=== PATIENT | male | born 1980 | race Caucasian/White ===

== ENCOUNTER 2021-03-04 12:24 | Inpatient (IN) ==
[2021-03-04] MEDS ORDERED: dexAMETHasone**PF** 10 MG/ML VIAL IV ONE (12:47)
--- NOTE | 2021-03-04 12:51 | Emergency Department Note ---
Impression & Plan Pneumonia due to COVID-19 virus, Respiratory failure with hypoxia ED Provider Note NAME: ARTURO TOMLIN AGE: 41 SEX: M : 1980 ARRIVES VIA: Walk-In INFORMANT: Patient, ED PROVIDER(S): Enoch Dykes DO CHIEF COMPLAINT: Shortness of breath HPI: The patient is a 41-year-old male who presented to the emergency department for an evaluation of shortness of breath. The patient was recently diagnosed with COVID-19. He was tested and had [facility] on the of this month. He has been having symptoms since approximately the which include cough shortness of breath and chest pain. He has had a low-grade fever he has had other symptoms consistent with COVID-19 including fatigue. He denies having any syncope. He denies having any recent trauma. He states his symptoms have worsened over the last 24 hours. He has been trying [id number] medications without any relief but is currently taking no prescription medications for this including no steroids. The patient presented to the emergency department with family today because the symptoms are worsening and they were afraid that he was having significant difficulty breathing. ROS: See above HPI for pertinent positives & negatives. A total of 10 systems reviewed and were otherwise negative. PAST MEDICAL HISTORY: See Below PAST SURGICAL HISTORY: See Below FAMILY HISTORY: See Below SOCIAL HISTORY: See Below HOME MEDICATIONS: See Below ALLERGIES: See Below VITALS: See Below PHYSICAL EXAMINATION: GENERAL: The patient is awake and alert. He is somewhat anxious appearing. EYES: The conjunctivae are clear. The pupils are round and reactive. EARS, NOSE, MOUTH AND THROAT: The nose is without any evidence of any deformity. NECK: The neck is nontender and supple. RESPIRATORY: Shallow respirations were noted. The breath sounds were diminished bilaterally. There were scattered rhonchi noted throughout. There is signif icant tachypnea and conversational dyspnea appreciated. CARDIOVASCULAR: Regular rate and rhythm noted there no murmurs rubs or gallops normal S1 normal S2. GASTROINTESTINAL: The abdomen is soft. Abdomen is nontender. MUSCULOSKELETAL/EXTREMITIES: There is no evidence of gross deformity full range of motion is noted in the hips and shoulders. SKIN: There is no obvious evidence of any rash. There are no petechiae, pallor or cyanosis noted. NEUROLOGIC: Patient is awake alert and oriented x3 MEDICAL DECISION MAKING: The patient is a 41-year-old male who presented to emergency department for an evaluation of difficulty breathing. The patient has a history of COVID-19. The patient tested positive. The patient has slowly been worsening and upon pr esentation he had a very low oxygen saturation. The patient's history and physical exam appear to be consistent with COVID-19 pneumonia. Chest x-ray appeared to be consistent with this as well. The patient was treated with supplemental oxygen and Decadron. He was reevaluated multiple times. I d iscussed this case with the on-call [facility] hospitalist. They have agreed to evaluate the patient in the emergency department for further management and disposition. Triage Nursing notes reviewed. Prior medical records reviewed Vital Signs: reviewed and remarkable for tachycardia and hypoxia. Differential diagnosis: Reactive airway disease, pneumonia, pneumothorax, COPD, CHF, infections, cardiac ischemia, pulmonary embolism, musculoskeletal, gastrointestinal, as well as other pathologies. ER treatment provided: See below Diagnostics interpreted by me: ECG: EKG was obtained in the emergency department. My interpretation is sinus tachycardia at 104 bpm. There was no ectopy. There was no acute ST segment abnormalities noted. No previous tracing was noted available for comparison. Cardiac Monitoring: An order was placed for continuous cardiac monitoring. The monitor shows a rate of 103 bpm with sinus rhythm. Laboratory studies: As stated above and show below. Imaging studies: See below Consultation(s): I discussed this case [facility] will evaluate the patient in the emergency department. 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 Beliefs That Will Affect Care: None Current Living Situation: Spouse Other Information That Helps Us Care for You: No Feels Safe at Home: Yes Safety Concerns: Feels Safe At This Time Assistive Devices: Oxygen - Continuous Allergies Allergies Allergy/AdvReac Type Severity Reaction Status Date / Time No Known Allergies Allergy Verified 03/04/21 13:52 Home Meds Home Medications Medication Instructions Recorded Confirmed atenolol 50 mg tablet 50 mg PO PM 03/04/21 03/04/21 Results & Data (ED) Vital Signs Vital Signs - 24 hr 03/04/21 12:36 03/04/21 12:58 03/04/21 13:08 Temperature 37.0 C Temperature Source Temporal Artery Scan Pulse Rate 103 H Pulse Rate [Apical] 104 H Pulse Rhythm [Apical] Regular Pulse Strength [Apical] Normal Respiratory Rate 20 25 H Respiratory Effort / Characteristics Non-Labored Spontaneous Labored Respiratory Depth Normal Normal Respiratory Pattern Regular Blood Pressure 132/69 Blood Pressure [Right Arm] 145/82 H Blood Pressure Mean 90 Blood Pressure Mean [Right Arm] 103 Blood Pressure Position [Right Arm] Sitting Pulse Oximetry 78 L 94 93 Oxygen Delivery Method Room Air Oxymask Oxymask Oxygen Flow Rate 8 6 Fraction of Inspired Oxygen 93 Sepsis Recent Fever Within 48 Hours No Sepsis New/Unexplained Change in Mental Status No Sepsis Action Taken by Nursing No Action Required 03/04/21 14:32 Temperature Temperature Source Pulse Rate Pulse Rate [Apical] 102 H Pulse Rhythm [Apical] Regular Pulse Strength [Apical] Normal Respiratory Rate 21 Respiratory Effort / Characteristics Non-Labored Respiratory Depth Normal Respiratory Pattern Regular Blood Pressure Blood Pressure [Right Arm] 131/88 Blood Pressure Mean Blood Pressure Mean [Right Arm] 102 Blood Pressure Position [Right Arm] Sitting Pulse Oximetry 92 Oxygen Delivery Method Oxymask Oxygen Flow Rate 6 Fraction of Inspired Oxygen Sepsis Recent Fever Within 48 Hours Sepsis New/Unexplained Change in Mental Status Sepsis Action Taken by [facility] Medications Current Medication List: was personally reviewed by me Laboratory Data Attestation: I reviewed the patient's lab results. Result diagrams: 03/04/21 12:50 03/04/21 12:50 Lab Results 03/04/21 03/04/21 03/04/21 Range/Units 12:50 12:50 12:50 WBC 9.69 (4.8-10.8) K/uL RBC 4.91 (4.7-6.1) M/uL Hgb 15.1 (14.0-18.0) g/dL Hct 45.1 (42-52) % MCV 91.9 (80-100) fL MCH 30.8 (25-34) pg MCHC 33.5 (32-36) g/dL RDW Std Deviation 47.0 H (36.4-46.3) fL RDW Coeff of Salvatore 13.9 (11.5-14.5) % Plt Count 342 (130-400) K/uL MPV 10.0 (7.4-10.4) fL Immature Gran % (Auto) 0.4 % Neut % (Auto) 82.1 % Lymph % (Auto) 12.1 % [place] % (Auto) 5.2 % Eos % (Auto) 0.0 % Baso % (Auto) 0.2 % Neut # (Auto) 7.96 H (1.4-6.5) K/uL Lymph # (Auto) 1.17 L (1.2-3.4) K/uL [place] # (Auto) 0.50 (0.11-0.59) K/uL Eos # (Auto) 0.00 (0-0.5) K/uL Baso # (Auto) 0.02 (0-0.2) K/uL Immature Gran # (Auto) 0.04 H (0.00-0.02) K/uL ESR 77 H (0-15) mm/hr PT 9.9 (9.0-12.0) Seconds INR 1.0 (0.9-1.1) APTT 25.4 (21.0-31.0) Seconds PTT Ratio 1.0 VBG pH (7.36-7.41) VBG pCO2 (38-50) mmHg VBG pO2 mmHg VBG HCO3 mmol/L VBG O2 Saturation % VBG Base Excess mEq/L Barometric Pressure mm/Hg Sodium (136-145) mmol/L Potassium (3.5-5.1) mmol/L Chloride (98-107) mmol/L Carbon Dioxide (21-32) mmol/L Anion Gap (3-11) BUN (7-18) mg/dl Creatinine (0.6-1.4) mg/dl Est Cr Clr Drug Dosing ml/min Est GFR ( Amer) ml/min Est GFR (Non-Af Amer) ml/min BUN/Creatinine Ratio (10-20) Glucose (70-99) mg/dl Lactate (0.4-2.0) mmol/L Calcium (8.5-10.1) mg/dl Magnesium (1.8-2.4) mg/dl Total Bilirubin (0.2-1) mg/dl AST (15-37) U/L ALT (12-78) Alkaline Phosphatase (45-117) U/L C-Reactive Protein (0-0.29) mg/dl Total Protein (6.4-8.2) gm/dl Albumin (3.4-5.0) gm/dl Globulin (2.5-4.0) gm/dl Albumin/Globulin Ratio (0.9-2) Specimen Hemolysis SARS-CoV-2 (PCR) (Negative) Influenza Type A (PCR) (Neg) Influenza Type B (PCR) (Neg) RSV (RT-PCR) (Neg) 03/04/21 03/04/21 03/04/21 Range/Units 12:50 13:03 14:14 WBC (4.8-10.8) K/uL RBC (4.7-6.1) M/uL Hgb (14.0-18.0) g/dL Hct (42-52) % MCV (80-100) fL MCH (25-34) pg MCHC (32-36) g/dL RDW Std Deviation (36.4-46.3) fL RDW Coeff of Salvatore (11.5-14.5) % Plt Count (130-400) K/uL MPV (7.4-10.4) fL Immature Gran % (Auto) % Neut % (Auto) % Lymph % (Auto) % [place] % (Auto) % Eos % (Auto) % Baso % (Auto) % Neut # (Auto) (1.4-6.5) K/uL Lymph # (Auto) (1.2-3.4) K/uL [place] # (Auto) (0.11-0.59) K/uL Eos # (Auto) (0-0.5) K/uL Baso # (Auto) (0-0.2) K/uL Immature Gran # (Auto) (0.00-0.02) K/uL ESR (0-15) mm/hr PT (9.0-12.0) Seconds INR (0.9-1.1) APTT (21.0-31.0) Seconds PTT Ratio VBG pH (7.36-7.41) VBG pCO2 (38-50) mmHg VBG pO2 mmHg VBG HCO3 mmol/L VBG O2 Saturation % VBG Base Excess mEq/L Barometric Pressure mm/Hg Sodium 136 (136-145) mmol/L Potassium 4.2 (3.5-5.1) mmol/L Chloride 101 (98-107) mmol/L Carbon Dioxide 26 (21-32) mmol/L Anion Gap 8.0 (3-11) BUN 14 (7-18) mg/dl Creatinine 1.02 (0.6-1.4) mg/dl Est Cr Clr Drug Dosing 109.7 ml/min Est GFR ( Amer) 104.6 ml/min Est GFR (Non-Af Amer) 90.2 ml/min BUN/Creatinine Ratio 13.6 (10-20) Glucose 107 H (70-99) mg/dl Lactate 1.8 (0.4-2.0) mmol/L Calcium 11.2 H (8.5-10.1) mg/dl Magnesium 2.4 (1.8-2.4) mg/dl Total Bilirubin 0.4 (0.2-1) mg/dl AST 89 H (15-37) U/L ALT 90 H (12-78) Alkaline Phosphatase 61 (45-117) U/L C-Reactive Protein 5.95 H (0-0.29) mg/dl Total Protein 9.0 H (6.4-8.2) gm/dl Albumin 3.3 L (3.4-5.0) gm/dl Globulin 5.7 H (2.5-4.0) gm/dl Albumin/Globulin Ratio 0.6 L (0.9-2) Specimen Hemolysis SARS-CoV-2 (PCR) POSITIVE A* (Negative) Influenza Type A (PCR) Negative (Neg) Influenza Type B (PCR) Negative (Neg) RSV (RT-PCR) Negative (Neg) 03/04/21 Range/Units 14:15 WBC (4.8-10.8) K/uL RBC (4.7-6.1) M/uL Hgb (14.0-18.0) g/dL Hct (42-52) % MCV (80-100) fL MCH (25-34) pg MCHC (32-36) g/dL RDW Std Deviation (36.4-46.3) fL RDW Coeff of Salvatore (11.5-14.5) % Plt Count (130-400) K/uL MPV (7.4-10.4) fL Immature Gran % (Auto) % Neut % (Auto) % Lymph % (Auto) % [place] % (Auto) % Eos % (Auto) % Baso % (Auto) % Neut # (Auto) (1.4-6.5) K/uL Lymph # (Auto) (1.2-3.4) K/uL [place] # (Auto) (0.11-0.59) K/uL Eos # (Auto) (0-0.5) K/uL Baso # (Auto) (0-0.2) K/uL Immature Gran # (Auto) (0.00-0.02) K/uL ESR (0-15) mm/hr PT (9.0-12.0) Seconds INR (0.9-1.1) APTT (21.0-31.0) Seconds PTT Ratio VBG pH 7.42 H (7.36-7.41) VBG pCO2 47 (38-50) mmHg VBG pO2 22 mmHg VBG HCO3 30 mmol/L VBG O2 Saturation < 60.0 % VBG Base Excess 4.9 mEq/L Barometric Pressure 728.0 mm/Hg Sodium (136-145) mmol/L Potassium (3.5-5.1) mmol/L Chloride (98-107) mmol/L Carbon Dioxide (21-32) mmol/L Anion Gap (3-11) BUN (7-18) mg/dl Creatinine (0.6-1.4) mg/dl Est Cr Clr Drug Dosing ml/min Est GFR ( Amer) ml/min Est GFR (Non-Af Amer) ml/min BUN/Creatinine Ratio (10-20) Glucose (70-99) mg/dl Lactate (0.4-2.0) mmol/L Calcium (8.5-10.1) mg/dl Magnesium (1.8-2.4) mg/dl Total Bilirubin (0.2-1) mg/dl AST (15-37) U/L ALT (12-78) Alkaline Phosphatase (45-117) U/L C-Reactive Protein (0-0.29) mg/dl Total Protein (6.4-8.2) gm/dl Albumin (3.4-5.0) gm/dl Globulin (2.5-4.0) gm/dl Albumin/Globulin Ratio (0.9-2) Specimen Hemolysis SARS-CoV-2 (PCR) (Negative) Influenza Type A (PCR) (Neg) Influenza Type B (PCR) (Neg) RSV (RT-PCR) (Neg) Administered Medications Enoxaparin Sodium (Enoxaparin Inj 40 Mg/0.4 Ml Syr) 40 mg SQ Q12H SEVERO Stop: 04/03/21 17:59 Last Admin: 03/04/21 17:51 Dose: 40 mg Documented by: [id number] Sodium Chloride (Nss 1000ml) 1,000 mls @ 100 mls/hr IV .Q10H SEVERO Stop: 04/03/21 16:47 Last Admin: 03/04/21 17:51 Dose: 100 mls/hr Documented by: [id number] Insulin Aspart (Insulin Aspart Per Unit) 0 units SC ACHS SEVERO Stop: 04/03/21 16:47 Last Admin: 03/04/21 20:31 Dose: Not Given Documented by: [id number] Admin: 03/04/21 17:52 Dose: Not Given Documented by: [id number] Discontinued Medications Dexamethasone Sodium Phosphate (DexamethasonePf 10 Mg/Ml Vial) 10 mg IV NOW ONE Stop: 03/04/21 12:48 Last Admin: 03/04/21 13:02 Dose: 10 mg Documented by: [id number] Imaging Data Radiologist's Impression: Chest X-Ray 03/04/21 12:47 XR chest 1V portable CLINICAL HISTORY: SEPSIS. Evaluate cardiopulmonary status COMPARISON STUDY: No previous studies for comparison. TECHNIQUE: 1 view of the chest FINDINGS: Single frontal view of the chest demonstrates the cardiomediastinal silhouette to be within normal limits. There is a patchy alveolar opacity present at the left lung base most characteristic of early pneumonia. There is minimal atelectasis at the right lung base. There is no evidence for pleural effusion. There is no evidence for vascular congestion. There is no acute osseous pathology. IMPRESSION: Patchy alveolar opacity at the left lung base characteristic of early pneumonia. ACT 112: Negative or not required by law. Electronically signed by: Tommy Rodriguez M.D. 03/04/2021 1:46 PM Discharge Plan Visit Data Chief Complaint: Shortness of Breath/Dyspnea Stated Complaint: SOB, NAUSEA, COVID+ ED Provider: Enoch Dykes Discharge Problem: Pneumonia due to COVID-19 virus, Respiratory failure with hypoxia Patient Disposition: Admitted As Inpatient Discharge Instructions Interventions: ED Discharge Assessment Last Done: 03/04/21 16:40 Discharge Problem: Respiratory failure with hypoxia Qualifiers: Chronicity: acute Qualified Code(s): J96.01 - Acute respiratory failure with hypoxia
[2021-03-04 13:06] LABS: Basophils # (auto) 0.02 K/uL (0-0.2); Basophils % (auto) 0.2 %; Hematocrit (blood only) 45.1 % (42-52); Hemoglobin 15.1 g/dL (14.0-18.0); Immature Granulocytes # (auto) 0.04 K/uL (0.00-0.02); Immature Granulocytes % (auto) 0.4 %; Lymphocytes # (auto) 1.17 K/uL (1.2-3.4); Lymphocytes % (auto) 12.1 %; Mean Corpuscular Hemoglobin 30.8 pg (25-34); Mean Corpuscular Hgb Conc 33.5 g/dL (32-36); Mean Corpuscular Volume 91.9 fL (80-100); Monocytes % (auto) 5.2 %; Neutrophils # (auto) 7.96 K/uL (1.4-6.5); Neutrophils % (auto) 82.1 %; Platelet Count 342 K/uL (130-400); RDW Coefficient of Variation 13.9 % (11.5-14.5); Red Blood Count 4.91 M/uL (4.7-6.1); White Blood Count 9.69 K/uL (4.8-10.8)
[2021-03-04 13:20] LABS: Partial Thromboplastin Time 25.4 Seconds (21.0-31.0); Prothrombin Time 9.9 Seconds (9.0-12.0)
[2021-03-04 13:40] LABS: Albumin Globulin Ratio 0.6 (0.9-2); Albumin Level 3.3 gm/dl (3.4-5.0); BUN Creatinine Ratio 13.6 (10-20); C Reactive Protein 5.95 mg/dl (0-0.29); Calcium 11.2 mg/dl (8.5-10.1); Creatinine Clr Calc Pharmacy 109.7 ml/min; Est GFR (African American) 104.6 ml/min; Est GFR (Non-African American) 90.2 ml/min; Globulin 5.7 gm/dl (2.5-4.0); Magnesium 2.4 mg/dl (1.8-2.4); Potassium 4.2 mmol/L (3.5-5.1)
--- NOTE | 2021-03-04 13:47 | XRay Report ---
XR chest 1V portable CLINICAL HISTORY: SEPSIS. Evaluate cardiopulmonary status COMPARISON STUDY: No previous studies for comparison. TECHNIQUE: 1 view of the chest FINDINGS: Single frontal view of the chest demonstrates the cardiomediastinal silhouette to be within normal li mits. There is a patchy alveolar opacity present at the left lung base most characteristic of early p neumonia. There is minimal atelectasis at the right lung base. There is no evidence for pleural effus ion. There is no evidence for vascular congestion. There is no acute osseous pathology. IMPRESSION: Patchy alveolar opacity at the left lung base characteristic of early pneumonia. ACT 112: Negative or not required by law. Electronically signed by: Tommy Rodriguez M.D. 03/04/2021 1:46 PM
[2021-03-04 13:48] LABS: Bilirubin,Total 0.4 mg/dl (0.2-1)
[2021-03-04 14:02] LABS: Influenza A virus by PCR Negative (Neg); Influenza B virus by PCR Negative (Neg); RSV by PCR Negative (Neg)
[2021-03-04 14:13] LABS: SARS CoV2 RNA(COVID-19) InHosp POSITIVE (Negative)
[2021-03-04 14:32] LABS: Base Excess VBG 4.9 mEq/L; HCO3 VBG 30 mmol/L; Oxygen Saturation VBG < 60.0 %; PCO2 VBG 47 mmHg (38-50); PO2 VBG 22 mmHg; pH VBG 7.42 (7.36-7.41)
--- NOTE | 2021-03-04 14:52 | History & Physical Report ---
Date of Service March 04, 2021 Assessment & Plan (1) Pneumonia due to COVID-19 virus: Plan: Unvaccinated patient with 11 days of COVID-19 symptoms and progressive course, especially over the past 24 hours. Presented to the ED today with hypoxia with a Pox of 78% in triage. Currently requiring 8 L via Oxymask to maintain sats in the low 90s. - Admit to PCU - Continue to titrate O2 to maintain sats. Discussed the possibility of BiPAP if worsening respiratory status and he states he would be agreeable. - Continue IV dexamethasone daily - Pt is outside the window for remdesivir - Daily labs - Incentive spirometry/flutter valve - Cough med prn - Clinically appears dry so will start IVF (2) Respiratory failure with hypoxia: Plan: See plan for #1 (3) HTN (hypertension): Plan: - Continue atenolol 50 mg daily (4) Prediabetes: Plan: A1c on 12/24/20 was 5.8. Due to dexamethasone for COVID, which will likely elevate pt's BSG: - Accuchecks - Insulin sliding scale Plan: Pt seen and review with attending physician, Dr. Grigsby. Plan of care discussed and as outlined above. Code Status: Full Code DVT Prophylaxis: Lovenox BID Aki Tolentino PA-C History of Present Illness Chief Complaint: Shortness of breath Primary Care Provider: Dr. Goss This is a 41 y/o male with a PMH of hypertension, hyperparathyroidism, and hyperlipidemia who presents with worsening shortness of breath and hypoxia. He started on 02/21 with body aches, chills, bad MCKEON, fatigue and cough. Took two home rapid tests for COVID that were negative. Saw PCP 02/24 and had a PCR test, which came back positive on 02/25. He noted breathing issues on 02/27, in itially just with exertion but has gradually progressed to being SOB even at rest. The cough comes in fits - minimally productive. No wheezing. Had diarrhea for a few days. Loss of appetite and nausea but no vomiting. Last BM 2-3 days ago. No documented fever. Mild intermittent chills now. MCKEON has improved from initial but still present. Heart racing at times with occasional palpitations. No chest pain. Feels thirsty constantly and like he can't get enough to drink. Urine has been darker than usual but no blood or dysuria. No loss of smell or taste. Thinks that he was exposed at work by a co-worker who tested positive for COVID-19. No one at home with similar symptoms. Pt is not vaccinated for COVID or the flu. Allergies Allergy/AdvReac Type Severity Reaction Status Date / Time No Known Allergies Allergy Verified 03/04/21 13:52 Home Medications Medication Instructions Recorded Confirmed Type atenolol 50 mg tablet 50 mg PO PM 03/04/21 03/04/21 History Past Med/Surg History Medical History Dizziness Intermittent, chronic issue under surveillance by PCP, trial of Meclizine in the past was ineffective HLD (hyperlipidemia) No meds HTN (hypertension) Hyperparathyroidism Palpitations s/p unremarkable holter monitor studies in past per pt Right inguinal hernia Surgical History History of hernia repair Family History Other No family history of adverse response to anesthesia Social History Smoking Status: Never smoker Second Hand Exposure: No; Hx Alcohol Use: No Hx Substance Use: No Preferred Language: Croatian Communication Ability: Effective 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 Beliefs That Will Affect Care: None Current Living Situation: Spouse Other Information That Helps Us Care for You: No Feels Safe at Home: Yes Safety Concerns: Feels Safe At This Time Assistive Devices: Oxygen - Continuous Review of Systems Review of Systems: All systems reviewed & are unremarkable except as noted in HPI & below Constitutional: + chills, + fatigue and + anorexia; no fever Eyes: no diplopia and no worsening vision Ear, Nose, Mouth, Throat: + dry mouth Respiratory: + cough, + dyspnea and + dyspnea on exertion Cardiovascular: + chest pain, + dyspnea on exertion and + palpitations; no lightheadedness, no syncope and no edema Gastrointestinal: + nausea and + diarrhea/loose stools; no abdominal pain and no vomiting Genitourinary: no dysuria, no urinary frequency or no hematuria Musculoskeletal: + myalgia; no back pain and no neck pain Integumentary: no rash and no yellowing of the skin Neurologic: + generalized weakness; no tremor(s) and no dizziness Psychiatric: + anxiety; no depression Physical Exam Constitutional: + acute distress (anxious and mildly increased WOB) Eyes: PERRL, conjunctivae normal, anicteric sclerae ENMT: Mouth: + dry oral mucous membranes Neck: trachea midline no lymphadenopathy Respiratory: + labored breathing (mildly increased WOB), + cough (occasional during exam) and + tachypneic Cardiovascular: Rate/Rhythm: regular rhythm and + tachycardic Heart Sounds: no gallop, no murmur and no cardiac rub Vessels: dorsalis pedis pulses present and radial pulses present Extremities: no pedal edema Gastrointestinal (Abdomen): Inspection/Auscultation: normal bowel sounds; abdomen not distended Percussion/Palpation: abdomen soft; abdomen nontender Musculoskeletal: Head/Neck/Chest: normocephalic, head atraumatic and neck supple Skin: no rashes and no jaundice Neurologic: moves all extremities; no focal motor deficits Psychiatric: Orientation: alert and oriented x 3 Mood: + anxious mood Results & Data Results & Data ([facility]) Vital Signs (Past 12 Hours) Vital Signs Temp Pulse Pulse Resp BP BP Pulse Ox 03/04/21 14:32 102 H 21 131/88 92 03/04/21 13:08 104 H 25 H 145/82 H 93 03/04/21 12:58 94 03/04/21 12:36 37.0 C 103 H 20 132/69 78 L Laboratory Results Laboratory Results - last 24 hr 03/04/21 03/04/21 03/04/21 12:50 12:50 12:50 WBC 9.69 RBC 4.91 Hgb 15.1 Hct 45.1 MCV 91.9 MCH 30.8 MCHC 33.5 RDW Std Deviation 47.0 H RDW Coeff of Salvatore 13.9 Plt Count 342 MPV 10.0 Immature Gran % (Auto) 0.4 Neut % (Auto) 82.1 Lymph % (Auto) 12.1 [place] % (Auto) 5.2 Eos % (Auto) 0.0 Baso % (Auto) 0.2 Neut # (Auto) 7.96 H Lymph # (Auto) 1.17 L [place] # (Auto) 0.50 Eos # (Auto) 0.00 Baso # (Auto) 0.02 Immature Gran # (Auto) 0.04 H ESR 77 H PT 9.9 INR 1.0 APTT 25.4 PTT Ratio 1.0 VBG pH VBG pCO2 VBG pO2 VBG HCO3 VBG O2 Saturation VBG Base Excess Barometric Pressure Sodium Potassium Chloride Carbon Dioxide Anion Gap BUN Creatinine Est Cr Clr Drug Dosing Est GFR ( Amer) Est GFR (Non-Af Amer) BUN/Creatinine Ratio Glucose Lactate Calcium Magnesium Total Bilirubin AST ALT Alkaline Phosphatase C-Reactive Protein Total Protein Albumin Globulin Albumin/Globulin Ratio Specimen Hemolysis SARS-CoV-2 (PCR) Influenza Type A (PCR) Influenza Type B (PCR) RSV (RT-PCR) 03/04/21 03/04/21 03/04/21 12:50 13:03 14:14 WBC RBC Hgb Hct MCV MCH MCHC RDW Std Deviation RDW Coeff of Salvatore Plt Count MPV Immature Gran % (Auto) Neut % (Auto) Lymph % (Auto) [place] % (Auto) Eos % (Auto) Baso % (Auto) Neut # (Auto) Lymph # (Auto) [place] # (Auto) Eos # (Auto) Baso # (Auto) Immature Gran # (Auto) ESR PT INR APTT PTT Ratio VBG pH VBG pCO2 VBG pO2 VBG HCO3 VBG O2 Saturation VBG Base Excess Barometric Pressure Sodium 136 Potassium 4.2 Chloride 101 Carbon Dioxide 26 Anion Gap 8.0 BUN 14 Creatinine 1.02 Est Cr Clr Drug Dosing 109.7 Est GFR ( Amer) 104.6 Est GFR (Non-Af Amer) 90.2 BUN/Creatinine Ratio 13.6 Glucose 107 H Lactate Pending Calcium 11.2 H Magnesium 2.4 Total Bilirubin 0.4 AST 89 H ALT 90 H Alkaline Phosphatase 61 C-Reactive Protein 5.95 H Total Protein 9.0 H Albumin 3.3 L Globulin 5.7 H Albumin/Globulin Ratio 0.6 L Specimen Hemolysis SARS-CoV-2 (PCR) POSITIVE A* Influenza Type A (PCR) Negative Influenza Type B (PCR) Negative RSV (RT-PCR) Negative 03/04/21 14:15 WBC RBC Hgb Hct MCV MCH MCHC RDW Std Deviation RDW Coeff of Salvatore Plt Count MPV Immature Gran % (Auto) Neut % (Auto) Lymph % (Auto) [place] % (Auto) Eos % (Auto) Baso % (Auto) Neut # (Auto) Lymph # (Auto) [place] # (Auto) Eos # (Auto) Baso # (Auto) Immature Gran # (Auto) ESR PT INR APTT PTT Ratio VBG pH 7.42 H VBG pCO2 47 VBG pO2 22 VBG HCO3 30 VBG O2 Saturation < 60.0 VBG Base Excess 4.9 Barometric Pressure 728.0 Sodium Potassium Chloride Carbon Dioxide Anion Gap BUN Creatinine Est Cr Clr Drug Dosing Est GFR ( Amer) Est GFR (Non-Af Amer) BUN/Creatinine Ratio Glucose Lactate Calcium Magnesium Total Bilirubin AST ALT Alkaline Phosphatase C-Reactive Protein Total Protein Albumin Globulin Albumin/Globulin Ratio Specimen Hemolysis SARS-CoV-2 (PCR) Influenza Type A (PCR) Influenza Type B (PCR) RSV (RT-PCR) Diagnostic Findings Chest X-ray 03/04/21 - IMPRESSION: Patchy alveolar opacity at the left lung base characteristic of early pneumonia. Medications Administered Discontinued Medications Dexamethasone Sodium Phosphate (DexamethasonePf 10 Mg/Ml Vial) 10 mg IV NOW ONE Stop: 03/04/21 12:48 Last Admin: 03/04/21 13:02 Dose: 10 mg Documented by: [id number] Code Status & VTE Plan VTE Prophylaxis Plan VTE Prophylaxis will be ordered: Yes Supervising Physician Co-Signing Physician Notes 41 y/o male with a PMH of hypertension, hyperparathyroidism, and hyperlipidemia presented 03/04 to our ED w/ worsening shortness of breath and hypoxia. He started on 02/21 with body aches, chills, bad MCKEON, fatigue and cough. He had diarrhea is after few days which is resolved by now. Non-smoker, occasional alcohol drinks, no recreational drug use. Not vaccinated against Covid. Continue with dexamethasone, out of window for remdesivir, incentive spirometer/flutter valve/proning. Plan of care discussed with patient in detail. Patient wants to try every effort leading up to intubation if needed. On examination GENERAL: Alert and oriented x3. NAD, oxygen mask 8 L. HEENT: No pallor, no icterus. Pupils equal, round and reactive to light. Oral mucosa moist. NECK: No JVD, no neck masses. HEART: S1 and S2 heard. Regular rate and rhythm. No murmur, no gallop. Tachycardic. RESPIRATORY SYSTEM: Normal AP diameter. No accessory muscle use. No wheezing, bibasilar cracklesdry, decreased breath sounds. ABDOMEN: Soft, bowel sounds present, nontender, no distention. CENTRAL NERVOUS SYSTEM: No facial droop. Speech is clear. Obeys simple commands. Moves extremities. EXTREMITIES: No edema, no erythema seen. I have seen and examined the patient and have discussed the case with the provider above. I agree with the assessment and plan as stated.
[2021-03-04] MEDS ORDERED: GLUCOSE 40% GEL 15 GM TUBE PO PRN (16:48)
[2021-03-04] MEDS ORDERED: CARBOHYDRATES FOR HYPOGLYCEMIA PO PRN (16:48)
[2021-03-04] MEDS ORDERED: GLUCOSE 10 TABS/TUBE PO PRN (16:48)
[2021-03-04] MEDS ORDERED: GLUCAGON FOR INJ 1 MG VIAL SQ PRN (16:48)
[2021-03-04] MEDS ORDERED: DEXTROSE 50% 50 ML SYRINGE IV PRN (16:48)
[2021-03-04] MEDS ORDERED: ONDANSETRON INJ 2 MG/ML 2 ML VIAL IV PRN (16:48)
[2021-03-04] MEDS: SODIUM CHLORIDE 0.9% 1000ML 1,000 ML IV SCH (17:51)
[2021-03-04] MEDS: ENOXAPARIN INJ 40 MG/0.4 ML SYR SQ SCH (17:51)
[2021-03-04] MEDS: INSULIN ASPART PER UNIT SC SCH ×2 (17:52→20:31)
--- NOTE | 2021-03-04 18:26 | Electrocardiogram Report ---
Test Reason : Blood Pressure : / mmHG Vent. Rate : 104 BPM Atrial Rate : 104 BPM P-R Int : 124 ms QRS Dur : 084 ms QT Int : 322 ms P-R-T Axes : 060 038 050 degrees QTc Int : 423 ms Sinus tachycardia Otherwise normal ECG No previous ECGs available Confirmed by Jose Gordon ([id number]) on 03/04/2021 6:26:03 PM Referred By: Confirmed By:Regis Gordon
[2021-03-04] MEDS: ATENOLOL 50 MG TABLET PO SCH (21:15)
[2021-03-04 23:16] LABS: Appearance Urine Clear (Clear); Bacteria Urine Automated Negative (Negative); Bilirubin Urine Negative (Negative); Blood Urine Negative (Negative); Cast Urine Automated 0 /lpf (0-5); Color Urine Yellow; Epithelial Cell Urine Auto 0-5 /lpf (0-5); Glucose Urine UA Negative (Negative); Ketones Urine Negative (Negative); Leukocyte Esterase Urine Negative (Negative); Nitrite Urine Negative (Negative); RBC Urine Automated 0-4 /hpf (0-4); Specific Gravity Urine 1.011 (1.000-1.030); Urobilinogen Urine Negative (Negative); pH Urine 7.5 (4.5-7.5)
[2021-03-04 23:34] LABS: Protein Urine Trace (Negative)
[2021-03-05] MEDS: SODIUM CHLORIDE 0.9% 1000ML 1,000 ML IV SCH (03:12)
[2021-03-05] MEDS: ENOXAPARIN INJ 40 MG/0.4 ML SYR SQ SCH ×2 (05:52→17:35)
[2021-03-05 06:49] LABS: Basophils # (auto) 0.02 K/uL (0-0.2); Basophils % (auto) 0.2 %; Hematocrit (blood only) 40.3 % (42-52); Immature Granulocytes # (auto) 0.03 K/uL (0.00-0.02); Immature Granulocytes % (auto) 0.3 %; Lymphocytes # (auto) 0.99 K/uL (1.2-3.4); Lymphocytes % (auto) 11.5 %; Mean Corpuscular Hemoglobin 29.6 pg (25-34); Mean Corpuscular Hgb Conc 32.3 g/dL (32-36); Mean Corpuscular Volume 91.8 fL (80-100); Mean Platelet Volume 9.7 fL (7.4-10.4); Monocytes # (auto) 0.61 K/uL (0.11-0.59); Monocytes % (auto) 7.1 %; Neutrophils # (auto) 6.93 K/uL (1.4-6.5); Neutrophils % (auto) 80.9 %; Platelet Count 389 K/uL (130-400); RDW Coefficient of Variation 13.7 % (11.5-14.5); RDW Standard Deviation 46.5 fL (36.4-46.3); Red Blood Count 4.39 M/uL (4.7-6.1); White Blood Count 8.58 K/uL (4.8-10.8)
[2021-03-05 07:18] LABS: Albumin Level 2.6 gm/dl (3.4-5.0); BUN Creatinine Ratio 18.7 (10-20); Creatinine Clr Calc Pharmacy 145.3 ml/min; Est GFR (African American) 129.7 ml/min; Est GFR (Non-African American) 111.9 ml/min; Potassium 3.8 mmol/L (3.5-5.1)
[2021-03-05 07:31] LABS: Albumin Globulin Ratio 0.5 (0.9-2); Bilirubin,Total 0.5 mg/dl (0.2-1); Globulin 4.8 gm/dl (2.5-4.0); Total Protein 7.4 gm/dl (6.4-8.2)
[2021-03-05] MEDS: INSULIN ASPART PER UNIT SC SCH ×4 (08:00→20:37)
[2021-03-05] MEDS: dexAMETHasone 6 MG in SYRINGE 0 ML IV SCH (08:01)
[2021-03-05] MEDS ORDERED: FUROSEMIDE INJ 20 MG/2 ML VIAL IV ONE (08:19)
--- NOTE | 2021-03-05 13:59 | Hospitalist Progress Note ---
Date of Service March 05, 2021 Assessment & Plan (1) Respiratory failure with hypoxia: (2) Pneumonia due to COVID-19 virus: Plan: 41 y/o male with a PMH of hypertension, hyperparathyroidism, and hyperlipidemia presented 03/04 to our ED w/ worsening shortness of breath and hypoxia. He started on 02/21 with body aches, chills, bad MCKEON, fatigue and cough. He had diarrhea is after few days which is resolved by the time of arrival. Non- smoker, occasional alcohol drinks, no recreational drug use. Not vaccinated against Covid. He is being managed for the following: #. Acute hypoxic respiratory failure #. Pneumonia due to COVID-19 virus #. COVID-19 Vaccine afebrile]status/month: Not vaccinated; S/S : Started 02/21 with body aches, chills and bad headache along with fatigue and cough; Tested Positive: 02/24/21 and 03/04/2021. Admitting pro-Willis: n/a Admitting imaging: CXR suggestive of early pneumonia Clinically, patient requiring 15 L HFNC, feeling tired, poor incentive spirometry effort at bedside exam, decreased breath sounds. Encourage every hour incentive spirometer/flutter valve/self proning as able. Patient made aware the importance of time. Patient not coughing much. BNP:n/a; Strict I's and O's; as needed IV Lasix; monitor BMP Monitor LFT daily when on remdesivir; sliding scale and glycemic pharmacy if needed when on steroid. 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 #. Hypertension Continue with home meds atenolol Fairly within control #. Prediabetes A1c on 12/24/20 was 5.8. Due to dexamethasone for COVID, which will likely elevate pt's BSG: - Accuchecks - Insulin sliding scale Full code, discussed in detail about the prognosis of Covid and understands the prognosis if he reaches to the point of intubation and agrees with intubation if needed. Enoxaparin. Disposition: Uncertain, pending improvement in oxygen requirement. Admission and Anticipated Discharge Date Admission Date: March 04, 2021 Subjective Patient was lying in bed, side proning, on 15 L oxygen, poor incentive spirometry report, she reports eating and moving bowels okay, reports feeling tired, no new acute events overnight. Patient denies headache/chills/palpitations/belly pain/other review of symptoms. Physical Exam Physical Exam: GENERAL: Alert and oriented x3. NAD, 15 L HFNC HEENT: No pallor, no icterus. Pupils equal, round and reactive to light. Oral mucosa moist. NECK: No JVD, no neck masses. HEART: S1 and S2 heard. Regular rate and rhythm. No murmur, no gallop. RESPIRATORY SYSTEM: Normal AP diameter. No accessory muscle use. No wheezing, decreased breath sounds. No crackles appreciated today. ABDOMEN: Soft, bowel sounds present, nontender, no distention. CENTRAL NERVOUS SYSTEM: No facial droop. Speech is clear. Obeys simple commands. Moves extremities. EXTREMITIES: No edema, no erythema seen. Results & Data Results & Data ([facility]) Vital Signs (Past 12 Hours) Vital Signs Temp Pulse Pulse Resp BP Pulse Ox 03/05/21 11:25 36.7 C 90 18 134/74 91 03/05/21 08:00 90 03/05/21 07:40 36.7 C 95 H 23 129/73 91 03/05/21 03:17 36.9 C 80 20 127/73 91 (1) Respiratory failure with hypoxia Chronicity: acute Qualified Code(s): J96.01 - Acute respiratory failure with hypoxia
[2021-03-05] MEDS: ATENOLOL 50 MG TABLET PO SCH (20:35)
[2021-03-06] MEDS: ENOXAPARIN INJ 40 MG/0.4 ML SYR SQ SCH ×2 (06:03→16:48)
[2021-03-06 06:12] LABS: Hematocrit (blood only) 42.1 % (42-52); Hemoglobin 13.8 g/dL (14.0-18.0); Mean Corpuscular Hemoglobin 30.3 pg (25-34); Mean Corpuscular Hgb Conc 32.8 g/dL (32-36); Mean Corpuscular Volume 92.5 fL (80-100); Mean Platelet Volume 9.7 fL (7.4-10.4); Platelet Count 461 K/uL (130-400); RDW Coefficient of Variation 13.4 % (11.5-14.5); RDW Standard Deviation 45.5 fL (36.4-46.3); Red Blood Count 4.55 M/uL (4.7-6.1); White Blood Count 8.77 K/uL (4.8-10.8)
[2021-03-06 06:43] LABS: Albumin Level 2.7 gm/dl (3.4-5.0); BUN Creatinine Ratio 26.2 (10-20); Calcium 10.4 mg/dl (8.5-10.1); Creatinine Clr Calc Pharmacy 133.2 ml/min; Est GFR (African American) 125.2 ml/min; Potassium 3.8 mmol/L (3.5-5.1)
[2021-03-06 06:44] LABS: Albumin Globulin Ratio 0.6 (0.9-2); Bilirubin,Total 0.7 mg/dl (0.2-1); Globulin 4.7 gm/dl (2.5-4.0); Total Protein 7.4 gm/dl (6.4-8.2)
[2021-03-06 06:45] LABS: Basophils # (auto) 0.02 K/uL (0-0.2); Basophils % (auto) 0.2 %; Immature Granulocytes # (auto) 0.05 K/uL (0.00-0.02); Immature Granulocytes % (auto) 0.6 %; Lymphocytes # (auto) 1.48 K/uL (1.2-3.4); Lymphocytes % (auto) 16.9 %; Monocytes % (auto) 10.3 %; Neutrophils # (auto) 6.32 K/uL (1.4-6.5)
[2021-03-06] MEDS: INSULIN ASPART PER UNIT SC SCH ×4 (07:52→20:33)
[2021-03-06] MEDS: dexAMETHasone 6 MG in SYRINGE 0 ML IV SCH (09:00)
[2021-03-06] MEDS ORDERED: FUROSEMIDE INJ 20 MG/2 ML VIAL IV ONE ×2 (13:39→16:50)
--- NOTE | 2021-03-06 13:51 | Hospitalist Progress Note ---
Date of Service March 06, 2021 Assessment & Plan (1) Respiratory failure with hypoxia: (2) Pneumonia due to COVID-19 virus: Plan: 41 y/o male with a PMH of hypertension, hyperparathyroidism, and hyperlipidemia presented 03/04 to our ED w/ worsening shortness of breath and hypoxia. He started on 02/21 with body aches, chills, bad MCKEON, fatigue and cough. He had diarrhea is after few days which is resolved by the time of arrival. Non- smoker, occasional alcohol drinks, no recreational drug use. Not vaccinated against Covid. He is being managed for the following: #. Acute hypoxic respiratory failure #. Pneumonia due to COVID-19 virus #. COVID-19 Vaccine afebrile]status/month: Not vaccinated; S/S : Started 02/21 with body aches, chills and bad headache along with fatigue and cough; Tested Positive: 02/24/21 and 03/04/2021. Admitting pro-Willis: n/a Admitting imaging: CXR suggestive of early pneumonia Clinically, patient requiring 15 L HFNC, feeling tired, poor incentive spirometry effort at bedside exam, decreased breath sounds. Encourage every hour incentive spirometer/flutter valve/self proning as able. Patient made aware the importance of time. Patient not coughing much. BNP:n/a; Strict I's and O's; as needed IV Lasix; monitor BMP sliding scale and glycemic pharmacy if needed when on steroid. 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 #. Hypertension Continue with home meds atenolol Fairly within control #. Prediabetes A1c on 12/24/20 was 5.8. Due to dexamethasone for COVID, which will likely elevate pt's BSG: - Accuchecks - Insulin sliding scale Full code, discussed in detail about the prognosis of Covid and understands the prognosis if he reaches to the point of intubation and agrees with intubation if needed. Enoxaparin. Disposition: Uncertain, pending improvement in oxygen requirement. Admission and Anticipated Discharge Date Admission Date: March 04, 2021 Subjective Patient was lying in bed, side proning, on 13 L oxygen, poor incentive spirome try effort though improving today, he reports eating and moving bowels okay, reports feeling tired, no new acute events overnight. Patient denies headache/chills/palpitations/belly pain/other review of symptoms. Physical Exam Physical Exam: GENERAL: Alert and oriented x3. NAD, 13 L HFNC HEENT: No pallor, no icterus. Pupils equal, round and reactive to light. Oral mucosa moist. NECK: No JVD, no neck masses. HEART: S1 and S2 heard. Regular rate and rhythm. No murmur, no gallop. RESPIRATORY SYSTEM: Normal AP diameter. No accessory muscle use. No wheezing, decreased breath sounds. No crackles appreciated today. ABDOMEN: Soft, bowel sounds present, nontender, no distention. CENTRAL NERVOUS SYSTEM: No facial droop. Speech is clear. Obeys simple commands. Moves extremities. EXTREMITIES: No edema, no erythema seen. Results & Data Results & Data ([facility]) Vital Signs (Past 12 Hours) Vital Signs Temp Pulse Resp BP Pulse Ox 03/06/21 11:58 36.5 C 80 20 143/81 H 90 03/06/21 07:37 36.6 C 74 20 138/77 90 03/06/21 04:00 36.7 C 69 20 128/73 95 (1) Respiratory failure with hypoxia Chronicity: acute Qualified Code(s): J96.01 - Acute respiratory failure with hypoxia
[2021-03-06] MEDS: ATENOLOL 50 MG TABLET PO SCH (20:34)
[2021-03-07] MEDS: ENOXAPARIN INJ 40 MG/0.4 ML SYR SQ SCH ×2 (06:23→17:49)
[2021-03-07 07:32] LABS: Albumin Globulin Ratio 0.6 (0.9-2); Albumin Level 2.8 gm/dl (3.4-5.0); BUN Creatinine Ratio 26.8 (10-20); Bilirubin,Total 0.6 mg/dl (0.2-1); Calcium 10.1 mg/dl (8.5-10.1); Creatinine Clr Calc Pharmacy 131.6 ml/min; Est GFR (African American) 124.6 ml/min; Est GFR (Non-African American) 107.5 ml/min; Globulin 4.5 gm/dl (2.5-4.0); Magnesium 2.6 mg/dl (1.8-2.4); Potassium 3.7 mmol/L (3.5-5.1); Total Protein 7.3 gm/dl (6.4-8.2)
[2021-03-07] MEDS: dexAMETHasone 6 MG in SYRINGE 0 ML IV SCH (08:55)
[2021-03-07] MEDS: INSULIN ASPART PER UNIT SC SCH ×4 (09:04→20:05)
--- NOTE | 2021-03-07 12:21 | Hospitalist Progress Note ---
Date of Service March 07, 2021 Assessment & Plan (1) Respiratory failure with hypoxia: (2) Pneumonia due to COVID-19 virus: Plan: 41 y/o male with a PMH of hypertension, hyperparathyroidism, and hyperlipidemia presented 03/04 to our ED w/ worsening shortness of breath and hypoxia. He started on 02/21 with body aches, chills, bad MCKEON, fatigue and cough. He had diarrhea is after few days which is resolved by the time of arrival. Non- smoker, occasional alcohol drinks, no recreational drug use. Not vaccinated against Covid. He is being managed for the following: #. Acute hypoxic respiratory failure #. Pneumonia due to COVID-19 virus #. COVID-19 Vaccine afebrile]status/month: Not vaccinated; S/S : Started 02/21 with body aches, chills and bad headache along with fatigue and cough; Tested Positive: 02/24/21 and 03/04/2021. Admitting pro-Willis: n/a Admitting imaging: CXR suggestive of early pneumonia Clinically, patient requiring 15 L HFNC, feeling tired, poor incentive spirometry effort at bedside exam, decreased breath sounds. Encourage every hour incentive spirometer/flutter valve/self proning as able. Patient made aware the importance of time. Patient not coughing much. BNP:n/a; Strict I's and O's; as needed IV Lasix; monitor BMP sliding scale and glycemic pharmacy if needed when on steroid. 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 Clinically patient is requiring 9 L oxygen today, somewhat improving, continue to monitor. #. Hypertension Continue with home meds atenolol Fairly within control #. Prediabetes A1c on 12/24/20 was 5.8. Due to dexamethasone for COVID, which will likely elevate pt's BSG: - Accuchecks - Insulin sliding scale Full code, discussed in detail about the prognosis of Covid and understands the prognosis if he reaches to the point of intubation and agrees with intubation if needed. Enoxaparin. Disposition: Uncertain, pending improvement in oxygen requirement. Admission and Anticipated Discharge Date Admission Date: March 04, 2021 Subjective Patient was lying in bed, side proning, on 9 L oxygen, poor incentive spirometry effort though improving today, he reports eating and moving bowels okay, reports feeling tired, no new acute events overnight. Patient denies headache/chills/palpitations/belly pain/other review of symptoms. Per RN he is doing better. Complicated with RN to ambulate the patient every 3 to 4 hours in the room. Physical Exam Physical Exam: GENERAL: Alert and oriented x3. NAD, 9 L HFNC HEENT: No pallor, no icterus. Pupils equal, round and reactive to light. Oral mucosa moist. NECK: No JVD, no neck masses. HEART: S1 and S2 heard. Regular rate and rhythm. No murmur, no gallop. RESPIRATORY SYSTEM: Normal AP diameter. No accessory muscle use. No wheezing, decreased breath sounds. No crackles appreciated today. ABDOMEN: Soft, bowel sounds present, nontender, no distention. CENTRAL NERVOUS SYSTEM: No facial droop. Speech is clear. Obeys simple commands. Moves extremities. EXTREMITIES: No edema, no erythema seen. Results & Data Results & Data ([facility]) Vital Signs (Past 12 Hours) Vital Signs Temp Pulse Resp BP Pulse Ox 03/07/21 11:37 89 20 115/73 93 03/07/21 04:04 36.7 C 75 22 123/75 95 (1) Respiratory failure with hypoxia Chronicity: acute Qualified Code(s): J96.01 - Acute respiratory failure with hypoxia
[2021-03-07] MEDS: ATENOLOL 50 MG TABLET PO SCH (20:30)
[2021-03-08] MEDS: ENOXAPARIN INJ 40 MG/0.4 ML SYR SQ SCH ×2 (05:04→18:01)
[2021-03-08 07:09] LABS: Albumin Level 2.6 gm/dl (3.4-5.0); BUN Creatinine Ratio 28.2 (10-20); Calcium 9.8 mg/dl (8.5-10.1); Creatinine Clr Calc Pharmacy 159.8 ml/min; Est GFR (African American) 134.9 ml/min; Est GFR (Non-African American) 116.4 ml/min; Potassium 3.4 mmol/L (3.5-5.1)
[2021-03-08 07:11] LABS: Albumin Globulin Ratio 0.6 (0.9-2); Bilirubin,Total 0.7 mg/dl (0.2-1); Globulin 4.3 gm/dl (2.5-4.0); Total Protein 6.9 gm/dl (6.4-8.2)
[2021-03-08] MEDS: dexAMETHasone 6 MG in SYRINGE 0 ML IV SCH (07:49)
[2021-03-08] MEDS: INSULIN ASPART PER UNIT SC SCH ×4 (08:27→20:07)
[2021-03-08] MEDS ORDERED: POTASSIUM CHLORIDE CRTAB 20 MEQ TABCR PO STA (09:01)
--- NOTE | 2021-03-08 15:27 | Hospitalist Progress Note ---
Date of Service March 08, 2021 Assessment & Plan (1) Respiratory failure with hypoxia: (2) Pneumonia due to COVID-19 virus: Plan: 41 y/o male with a PMH of hypertension, hyperparathyroidism, and hyperlipidemia presented 03/04 to our ED w/ worsening shortness of breath and hypoxia. He started on 02/21 with body aches, chills, bad MCKEON, fatigue and cough. He had diarrhea is after few days which is resolved by the time of arrival. Non- smoker, occasional alcohol drinks, no recreational drug use. Not vaccinated against Covid. He is being managed for the following: #. Acute hypoxic respiratory failure #. Pneumonia due to COVID-19 virus #. COVID-19 Vaccine afebrile]status/month: Not vaccinated; S/S : Started 02/21 with body aches, chills and bad headache along with fatigue and cough; Tested Positive: 02/24/21 and 03/04/2021. Admitting pro-Willis: n/a Admitting imaging: CXR suggestive of early pneumonia Clinically, patient requiring 5 L HFNC, feeling better, incentive spirometry report improving, decreased breath sounds. Encourage every hour incentive spirometer/flutter valve/self proning as able. Patient made aware the importance of I-S time and again Patient not coughing much. BNP:n/a; Strict I's and O's; as needed IV Lasix; monitor BMP sliding scale and glycemic pharmacy if needed when on steroid. 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 Clinically patient is requiring 5 L oxygen today, somewhat improving, continue to monitor. Continue to ambulate, continue to incentive spirometry use. #. Hypertension Continue with home meds atenolol Fairly within control #. Prediabetes A1c on 12/24/20 was 5.8. Due to dexamethasone for COVID, which will likely elevate pt's BSG: - Accuchecks - Insulin sliding scale Full code, discussed in detail about the prognosis of Covid and understands the prognosis if he reaches to the point of intubation and agrees with intubation if needed. Enoxaparin. Disposition: Expect discharge in the next 2 days, pending improvement in his oxygen status. Admission and Anticipated Discharge Date Admission Date: March 04, 2021 Subjective Patient sitting up in chair, on 5 L nasal cannula oxygen, incentive spirometry effort improving, reports eating and moving bowels okay, reports feeling good today, wants to go home, no new acute events overnight per RN. Per RN patient is doing better. Patient denies headache/chills/palpitations/belly pain/other review of symptoms. Communicated with RN to ambulate the patient every 3 to 4 hours in the room. Physical Exam Physical Exam: GENERAL: Alert and oriented x3. NAD, 5 L HFNC HEENT: No pallor, no icterus. Pupils equal, round and reactive to light. Oral mucosa moist. NECK: No JVD, no neck masses. HEART: S1 and S2 heard. Regular rate and rhythm. No murmur, no gallop. RESPIRATORY SYSTEM: Normal AP diameter. No accessory muscle use. No wheezing, decreased breath sounds. No crackles appreciated today. ABDOMEN: Soft, bowel sounds present, nontender, no distention. CENTRAL NERVOUS SYSTEM: No facial droop. Speech is clear. Obeys simple commands. Moves extremities. EXTREMITIES: No edema, no erythema seen. Results & Data Results & Data ([facility]) Vital Signs (Past 12 Hours) Vital Signs Temp Pulse Pulse Resp BP Pulse Ox 03/08/21 15:00 86 03/08/21 11:36 36.4 C L 81 19 117/75 95 03/08/21 08:28 77 03/08/21 07:30 36.4 C L 80 21 106/69 94 03/08/21 04:35 36.9 C 79 18 108/65 93 (1) Respiratory failure with hypoxia Chronicity: acute Qualified Code(s): J96.01 - Acute respiratory failure with hypoxia
[2021-03-08] MEDS: ATENOLOL 50 MG TABLET PO SCH (20:29)
[2021-03-09] MEDS: ENOXAPARIN INJ 40 MG/0.4 ML SYR SQ SCH ×2 (05:32→17:35)
[2021-03-09 07:27] LABS: BUN Creatinine Ratio 24.6 (10-20); Calcium 9.6 mg/dl (8.5-10.1); Creatinine Clr Calc Pharmacy 143.4 ml/min; Est GFR (Non-African American) 111.3 ml/min; Potassium 3.8 mmol/L (3.5-5.1)
[2021-03-09] MEDS: INSULIN ASPART PER UNIT SC SCH ×4 (07:59→20:17)
[2021-03-09] MEDS: dexAMETHasone 6 MG in SYRINGE 0 ML IV SCH (07:59)
[2021-03-09] MEDS: BENZONATATE 100 MG CAPSULE PO PRN (07:59)
[2021-03-09] MEDS: ACETAMINOPHEN 325 MG TAB PO PRN (07:59)
--- NOTE | 2021-03-09 15:25 | Hospitalist Progress Note ---
Date of Service March 09, 2021 Assessment & Plan (1) Respiratory failure with hypoxia: (2) Pneumonia due to COVID-19 virus: Plan: 41 y/o male with a PMH of hypertension, hyperparathyroidism, and hyperlipidemia presented 03/04 to our ED w/ worsening shortness of breath and hypoxia. He started on 02/21 with body aches, chills, bad MCKEON, fatigue and cough. He had diarrhea is after few days which is resolved by the time of arrival. Non- smoker, occasional alcohol drinks, no recreational drug use. Not vaccinated against Covid. He is being managed for the following: #. Acute hypoxic respiratory failure #. Pneumonia due to COVID-19 virus #. COVID-19 Vaccine afebrile]status/month: Not vaccinated; S/S : Started 02/21 with body aches, chills and bad headache along with fatigue and cough; Tested Positive: 02/24/21 and 03/04/2021. Admitting pro-Willis: n/a Admitting imaging: CXR suggestive of early pneumonia Clinically, patient requiring 5 L HFNC, feeling better, incentive spirometry report improving, decreased breath sounds. Encourage every hour incentive spirometer/flutter valve/self proning as able. Patient made aware the importance of I-S time and again Patient not coughing much. BNP:n/a; Strict I's and O's; as needed IV Lasix; monitor BMP sliding scale and glycemic pharmacy if needed when on steroid. c/w Dexamethasone 03/04; did not qualify for remdesivir and due to sinus symptoms starting 11 days CCNP. Clinically patient is requiring 4 L oxygen today, somewhat improving, continue to monitor. Continue to ambulate, continue to incentive spirometry use. #. Hypertension Continue with home meds atenolol Fairly within control #. Prediabetes A1c on 12/24/20 was 5.8. Due to dexamethasone for COVID, which will likely elevate pt's BSG: - Accuchecks - Insulin sliding scale Full code, discussed in detail about the prognosis of Covid and understands the prognosis if he reaches to the point of intubation and agrees with intubation if needed. Enoxaparin. Disposition: Expect discharge in the next 2 days, pending improvement in his oxygen status. Admission and Anticipated Discharge Date Admission Date: March 04, 2021 Subjective Patient sitting up in chair, on 4 L nasal cannula oxygen, incentive spirometry effort improving, reports eating and moving bowels okay, reports feeling good and no desaturation/weakness with moving around, wants to go home, no new acute events overnight per RN. Per RN patient is doing better. Patient denies headache/chills/palpitations/belly pain/other review of symptoms. Physical Exam Physical Exam: GENERAL: Alert and oriented x3. NAD, 4 L HFNC HEENT: No pallor, no icterus. Pupils equal, round and reactive to light. Oral mucosa moist. NECK: No JVD, no neck masses. HEART: S1 and S2 heard. Regular rate and rhythm. No murmur, no gallop. RESPIRATORY SYSTEM: Normal AP diameter. No accessory muscle use. No wheezing, decreased breath sounds. No crackles appreciated today. ABDOMEN: Soft, bowel sounds present, nontender, no distention. CENTRAL NERVOUS SYSTEM: No facial droop. Speech is clear. Obeys simple commands. Moves extremities. EXTREMITIES: No edema, no erythema seen. Results & Data Results & Data ([facility]) Vital Signs (Past 12 Hours) Vital Signs Temp Pulse Resp BP Pulse Ox 03/09/21 11:58 36.5 C 86 20 116/68 95 03/09/21 05:04 36.6 C 62 18 126/74 96 (1) Respiratory failure with hypoxia Chronicity: acute Qualified Code(s): J96.01 - Acute respiratory failure with hypoxia
[2021-03-09] MEDS: ATENOLOL 50 MG TABLET PO SCH (20:54)
[2021-03-10] MEDS: ENOXAPARIN INJ 40 MG/0.4 ML SYR SQ SCH (05:43)
[2021-03-10] MEDS: INSULIN ASPART PER UNIT SC SCH ×3 (07:55→16:40)
[2021-03-10] MEDS: ACETAMINOPHEN 325 MG TAB PO PRN (07:55)
[2021-03-10] MEDS: dexAMETHasone 6 MG in SYRINGE 0 ML IV SCH (07:55)
[2021-03-10] MEDS: BENZONATATE 100 MG CAPSULE PO PRN (07:55)
[2021-03-10 08:34] LABS: BUN Creatinine Ratio 19.1 (10-20); Calcium 10.2 mg/dl (8.5-10.1); Creatinine Clr Calc Pharmacy 125.7 ml/min; Est GFR (African American) 122.2 ml/min; Est GFR (Non-African American) 105.5 ml/min; Potassium 3.7 mmol/L (3.5-5.1)
--- NOTE | 2021-03-10 14:28 | Hospitalist Progress Note ---
Date of Service March 10, 2021 Assessment & Plan (1) Respiratory failure with hypoxia: (2) Pneumonia due to COVID-19 virus: Plan: per Dr. Grigsby's notes with addendum: 41 y/o male with a PMH of hypertension, hyperparathyroidism, and hyperlipidemia presented 03/04 to our ED w/ worsening shortness of breath and hypoxia. He started on 02/21 with body aches, chills, bad MCKEON, fatigue and cough. He had diarrhea is after few days which is resolved by the time of arrival. Non- smoker, occasional alcohol drinks, no recreational drug use. Not vaccinated against Covid. He is being managed for the following: #. Acute hypoxic respiratory failure #. Pneumonia due to COVID-19 virus #. COVID-19 Vaccine afebrile]status/month: Not vaccinated; S/S : Started 02/21 with body aches, chills and bad headache along with fatigue and cough; Tested Positive: 02/24/21 and 03/04/2021. Admitting pro-Willis: n/a Admitting imaging: CXR suggestive of early pneumonia Clinically, patient requiring 5 L HFNC, feeling better, incentive spirometry report improving, decreased breath sounds. Encourage every hour incentive spirometer/flutter valve/self proning as able. Patient made aware the importance of I-S time and again Patient not coughing much. BNP:n/a; Strict I's and O's; as needed IV Lasix; monitor BMP sliding scale and glycemic pharmacy if needed when on steroid. 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 Continue to ambulate, continue to incentive spirometry use. 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 Hypertension continue Atenolol #. Prediabetes A1c on 12/24/20 was 5.8. BSGs 94-130 Disposition: d/c home with oxygen ff up with PCP in 1 week Admission and Anticipated Discharge Date Admission Date: March 04, 2021 Subjective ff up for COVID 19 pneumonia, acute hypoxic respiratory failure, etc seen sitting up in chair, comfortable on 2 L NC states he feels much better overall states breathing is also much better comfortable on 2 L no dyspnea with ambulation while on o2 no chest pain, palpitations, dizziness no leg pain no other symptoms states he is ready and would like to be discharged today Review of Systems Review of Systems: all noted and negative except for above Physical Exam Physical Exam: General- oriented x 3, not in distress, speaks in sentences with no effort or accessory muscle use Eyes- anicteric Neck- no JVD Lungs- mild rales at the bases, but good air entry BL Heart- normal rate, regular rhythm; no murmurs Abdomen- normal bowel sounds, nondistended, soft, nontender Extremities- no pretibial edema, no calf tenderness Neuro- alert, oriented x 3; no gross focal neurologic deficits Skin- warm & dry Results & Data Results & Data ([facility]) Vital Signs (Past 12 Hours) Vital Signs Temp Pulse Pulse Pulse Pulse Pulse Resp 03/10/21 13:59 82 104 H 86 84 03/10/21 12:25 36.7 C 89 20 03/10/21 04:09 36.6 C 73 18 Resp Resp Resp Resp BP Pulse Ox Pulse Ox 03/10/21 13:59 20 22 20 20 93 03/10/21 12:25 120/72 96 03/10/21 04:09 110/58 L 90 Pulse Ox Pulse Ox Pulse Ox 03/10/21 13:59 86 L 92 92 03/10/21 12:25 03/10/21 04:09 all noted and reviewed including below (1) Respiratory failure with hypoxia Chronicity: acute Qualified Code(s): J96.01 - Acute respiratory failure with hypoxia
--- NOTE | 2021-03-10 14:56 | Discharge Summary ---
Date of Service March 10, 2021 Admission HPI Per Admitting Provider This is a 41 y/o male with a PMH of hypertension, hyperparathyroidism, and hyperlipidemia who presents with worsening shortness of breath and hypoxia. He started on 02/21 with body aches, chills, bad MCKEON, fatigue and cough. Took two home rapid tests for COVID that were negative. Saw PCP 02/24 and had a PCR test, which came back positive on 02/25. He noted breathing issues on 02/27, initially just with exertion but has gradually progressed to being SOB even at rest. The cough comes in fits - minimally productive. No wheezing. Had diarrhea for a few days. Loss of appetite and nausea but no vomiting. Last BM 2-3 days ago. No documented fever. Mild intermittent chills now. MCKEON has improved from initial but still present. Heart racing at times with occasional palpitations. No chest pain. Feels thirsty constantly and like he can't get enough to drink. Urine has been darker than usual but no blood or dysuria. No loss of smell or taste. Thinks that he was exposed at work by a co-worker who tested positive for COVID-19. No one at home with similar symptoms. Pt is not vaccinated for COVID or the flu. Admission Exam (Per Admitting) Constitutional Constitutional: + acute distress (anxious and mildly inc reased WOB) Eyes: PERRL, conjunctivae normal, anicteric sclerae ENMT: Mouth: + dry oral mucous membranes Neck: trachea midline no lymphadenopathy Respiratory: + labored breathing (mildly increased WO B), + cough (occasional during exam) and + tachypneic Cardiovascular: Rate/Rhythm: regular rhythm and + tachycardic Heart Sounds: no gallop, no murmur and no cardiac rub Vessels: dorsalis pedis pulses present and radial pulses present Extremities: no pedal edema Gastrointestinal (Abdomen): Inspection/Auscultation: normal bowel sounds; abdomen not distended Percussion/Palpation: abdomen soft; abdomen nontender Musculoskeletal: Head/Neck/Chest: normocephalic, head atraumatic and neck supple Skin: no rashes and no jaundice Neurologic: moves all extremities; no focal motor deficits Psychiatric: Orientation: alert and oriented x 3 Mood: + anxious mood Discharge Data Consultations 03/04/21 14:16 ED Decision to Admit Stat Procedures Performed XR chest 1V portable CLINICAL HISTORY: SEPSIS. Evaluate cardiopulmonary status COMPARISON STUDY: No previous studies for comparison. TECHNIQUE: 1 view of the chest FINDINGS: Single frontal view of the chest demonstrates the cardiomediastinal silhouette to be within normal limits. There is a patchy alveolar opacity present at the left lung base most characteristic of early pneumonia. There is minimal atelectasis at the right lung base. There is no evidence for pleural effusion. There is no evidence for vascular congestion. There is no acute osseous pathology. IMPRESSION: Patchy alveolar opacity at the left lung base characteristic of early pneumonia. ACT 112: Negative or not required by law. Hospital Course (1) Respiratory failure with hypoxia: (2) Pneumonia due to COVID-19 virus: per Dr. Grigsby's notes with addendum: 41 y/o male with a PMH of hypertension, hyperparathyroidism, and hyperlipidemia presented 03/04 to our ED w/ worsening shortness of breath and hypoxia. He started on 02/21 with body aches, chills, bad MCKEON, fatigue and cough. He had diarrhea is after few days which is resolved by the time of arrival. Non- smoker, occasional alcohol drinks, no recreational drug use. Not vaccinated against Covid. He is being managed for the following: #. Acute hypoxic respiratory failure #. Pneumonia due to COVID-19 virus #. COVID-19 Vaccine afebrile]status/month: Not vaccinated; S/S : Started 02/21 with body aches, chills and bad headache along with fatigue and cough; Tested Positive: 02/24/21 and 03/04/2021. 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 Hypertension continue Atenolol #. Prediabetes A1c on 12/24/20 was 5.8. BSGs 94-130 Disposition: d/c home with oxygen tank ff up with PCP in 1 week plan of care discussed with patient in detail and at length all questions answered he is understanding, agreeable, comfortable with the plan of care
== END 2021-03-10 17:49 | disposition home or self-care (01) | DRG 177 ==
LOC: ED 12:24 → 2S 14:50 → SUATTDRO 14:50 → 2S 16:40

== ENCOUNTER 2023-04-10 12:51 | Inpatient (IN) ==
[2023-04-10 13:50] LABS: Appearance Urine Clear (Clear); Bilirubin Urine Negative (Negative); Blood Urine Negative (Negative); Color Urine Yellow; Glucose Urine UA Negative (Negative); Ketones Urine Negative (Negative); Leukocyte Esterase Urine Negative (Negative); Nitrite Urine Negative (Negative); Protein Urine Negative (Negative); Specific Gravity Urine 1.013 (1.000-1.030); Urobilinogen Urine Negative (Negative)
[2023-04-10 13:55] LABS: Basophils # (auto) 0.02 K/uL (0.00-0.20); Basophils % (auto) 0.4 %; Eosinophils # (auto) 0.05 K/uL (0.00-0.50); Eosinophils % (auto) 0.9 %; Hematocrit (blood only) 47.1 % (42.0-52.0); Hemoglobin 15.8 g/dl (14.0-18.0); Immature Granulocytes # (auto) 0.01 K/uL (0.01-0.20); Immature Granulocytes % (auto) 0.2 %; Lymphocytes # (auto) 1.17 K/uL (1.20-3.40); Lymphocytes % (auto) 20.6 %; Mean Corpuscular Hemoglobin 30.3 pg (25.0-34.0); Mean Corpuscular Hgb Conc 33.5 g/dL (32.0-36.0); Mean Corpuscular Volume 90.4 fL (80.0-100.0); Mean Platelet Volume 9.4 fL (9.4-12.4); Monocytes # (auto) 0.83 K/uL (0.11-0.59); Monocytes % (auto) 14.6 %; Neutrophils # (auto) 3.61 K/uL (1.40-6.50); Neutrophils % (auto) 63.3 %; Platelet Count 274 K/uL (130-400); RDW Coefficient of Variation 12.8 % (11.5-14.5); RDW Standard Deviation 42.4 fL (36.4-46.3); Red Blood Count 5.21 M/uL (4.70-6.10); White Blood Count 5.69 K/ul (4.8-10.8)
--- NOTE | 2023-04-10 14:16 | Emergency Department Note ---
Impression & Plan SBO (small bowel obstruction), Abdominal pain ED Provider Note NAME: ARTURO TOMLIN AGE: 43 SEX: M : 1980 ARRIVES VIA: Walk-In INFORMANT: Patient ED PROVIDER(S): Arturo Noe DO CHIEF COMPLAINT: abdominal pain HPI: Patient is a 43-year-old male with a past medical history of prediabetes and hypertension who presents to the ER for periumbilical/epigastric abdominal discomfort which has been present since Monday constantly. It started initially on Monday and waxed and waned. Associate with nausea but no vomiting. Denies any headache or change in vision. No chest pain or shortness of breath. No dysuria, urgency, or frequency. No other exacerbating or remitting factors. Not exertional. He notes that it is worse with eating and drinking. Previous abdominal surgeries include a hernia repair. ADDITIONAL HISTORY OBTAINED: Per HPI Chronic Medical/Social Conditions Affecting Care: Per HPI PAST MEDICAL HISTORY:See Below PAST SURGICAL HISTORY:See Below FAMILY HISTORY:See Below SOCIAL HISTORY:See Below HOME MEDICATIONS:See Below ALLERGIES:See Below VITALS:See Below PHYSICAL EXAMINATION: GENERAL: Sitting up in bed, alert, well appearing, well nourished, no distress, non-toxic EYE EXAM: normal conjunctiva. PERRL and EOM's grossly intact. OROPHARYNX:mucous membranes are moist NECK: supple, no nuchal rigidity, no adenopathy, non-tender LUNGS: Clear to auscultation. Normal chest wall mechanics HEART: no murmurs, S1 normal and S2 normal ABDOMEN: abdomen soft, periumbilical tenderness/supraumbilical tenderness with a reducible periumbilical hernia, normo-active bowel sounds, no masses, no rebound or guarding. UPPER EXTREMITIES: upper extremities are grossly normal. LOWER EXTREMITIES: No pitting edema. NEURO EXAM: Normal sensorium, cranial nerves II-XII grossly intact, normal speech, no gross weakness of arms, no gross weakness of legs. MEDICAL DECISION MAKING: Patient is a 43-year-old male who presents to the ER for the above-stated complaint. IV was established blood work was obtained. Labs show no significant leukocytosis or anemia. BMP along LFTs bilirubin was unremarkable. Troponins were negative. UA was clean. CT abdomen pelvis consistent with a small bowel obstruction. Patient was given IV fluids and Zofran. Updated at bedside. CT abdomen pelvis suggested small bowel obstruction. Discussed case with general surgery as well as the hospitalist. No vomiting while here and they recommended admission and close monitoring. Hold on NG at the time as patient was having no vomiting and was comfortable. Consults/Care Managements Discussions: Per MDM Triage Nursing notes reviewed. Limited review of prior medical records performed Vital Signs: reviewed and remarkable for HTN and tachy Differential diagnosis: Differential diagnoses includes but is not limited to gastritis, peptic ulcer disease, GERD, gallbladder disease, pancreatitis, small bowel obstruction, appendicitis, diverticulitis, hernia, urinary tract infection, torsion, perforation, trauma, infectious. ER treatment provided: See below Diagnostics interpreted by me include EKG and cardiac monitoring as listed below: -Cardiac Monitoring: An order was placed for continuous cardiac monitoring. The monitor shows a rate of 80 with sinus rhythm. -ECG: none -Laboratory studies:Interpreted by me as stated above in MDM and shown below. Imaging studies: Xrays: As interpreted by me:none CTs show: CT abdomen pelvis per my preliminary read showed multiple air-fluid levels CT abdomen pelvis per radiology showed small bowel obstruction Procedures:none Critical Care: None Past Med/Surg History Medical History Dizziness Intermittent, chronic issue under surveillance by PCP, trial of Meclizine in the past was ineffective Right inguinal hernia Hyperparathyroidism HLD (hyperlipidemia) No meds HTN (hypertension) Palpitations s/p unremarkable holter monitor studies in past per pt Surgical History H/O parathyroidectomy 03/14/[address]. [facility] [place]. 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 Required: No Beliefs That Will Affect Care: None Current Living Situation: Spouse Feels Safe at Home: Yes Assistive Devices: Oxygen - Continuous Allergies Allergies Allergy/AdvReac Type Severity Reaction Status Date / Time No Known Allergies Allergy Verified 04/10/23 15:53 Home Meds Home Medications Medication Instructions Recorded Confirmed atenolol 50 mg tablet 50 mg PO DAILY 03/04/21 04/10/23 losartan 50 mg tablet 50 mg PO QAM 04/10/23 04/10/23 Results & Data (ED) Vital Signs Vital Signs - 24 hr 04/10/23 12:59 Temperature 36.3 C L Temperature Source Temporal Artery Scan Pulse Rate 100 H Respiratory Rate 20 Respiratory Effort / Characteristics Non-Labored Respiratory Depth Normal Blood Pressure 151/91 H Blood Pressure Mean 111 Pulse Oximetry 97 Oxygen Delivery Method Room Air Sepsis Recent Fever Within 48 Hours No Sepsis New/Unexplained Change in Mental Status No Sepsis Action Taken by Nursing No Action Required Laboratory Data 04/10/23 13:30 04/10/23 14:28 Lab Results 04/10/23 04/10/23 Range/Units 13:30 14:28 WBC 5.69 (4.8-10.8) K/ul RBC 5.21 (4.70-6.10) M/uL Hgb 15.8 (14.0-18.0) g/dl Hct 47.1 (42.0-52.0) % MCV 90.4 (80.0-100.0) fL MCH 30.3 (25.0-34.0) pg MCHC 33.5 (32.0-36.0) g/dL RDW Std Deviation 42.4 (36.4-46.3) fL RDW Coeff of Salvatore 12.8 (11.5-14.5) % Plt Count 274 (130-400) K/uL MPV 9.4 (9.4-12.4) fL Immature Gran % (Auto) 0.2 % Neut % (Auto) 63.3 % Lymph % (Auto) 20.6 % [place] % (Auto) 14.6 % Eos % (Auto) 0.9 % Baso % (Auto) 0.4 % Neut # (Auto) 3.61 (1.40-6.50) K/uL Lymph # (Auto) 1.17 L (1.20-3.40) K/uL [place] # (Auto) 0.83 H (0.11-0.59) K/uL Eos # (Auto) 0.05 (0.00-0.50) K/uL Baso # (Auto) 0.02 (0.00-0.20) K/uL Immature Gran # (Auto) 0.01 (0.01-0.20) K/uL Sodium TNP 137 Potassium TNP 3.7 Chloride 101 (98-107) mmol/L Carbon Dioxide 26 (21-32) mmol/L Anion Gap TNP BUN 9 (6-23) mg/dl Creatinine 0.91 (0.6-1.4) mg/dl Est Cr Clr Drug Dosing 120.4 ml/min Est GFR ( Amer) 118.4 ml/min Est GFR (Non-Af Amer) 102.1 ml/min BUN/Creatinine Ratio 9.9 L (10-20) Glucose 107 H (70-99(Fasting)) mg/dl Calcium 9.9 (8.6-10.3) mg/dl Total Bilirubin 0.6 (0.2-1.0) mg/dl AST TNP 15 ALT 18 (7-52) U/L Alkaline Phosphatase TNP 84 Troponin I High Sens < 2.3 (0-20) pg/ml Total Protein 8.0 (6.0-8.3) gm/dl Albumin TNP 4.6 Globulin TNP Albumin/Globulin Ratio TNP Lipase 21 (11-82) U/L Urine Color Yellow Urine Appearance Clear (Clear) Urine pH 7.0 (4.5-7.5) Ur Specific [place] 1.013 (1.000-1.030) Urine Protein Negative (Negative) Urine Glucose (UA) Negative (Negative) Urine Ketones Negative (Negative) Urine Blood Negative (Negative) Urine Nitrite Negative (Negative) Urine Bilirubin Negative (Negative) Urine Urobilinogen Negative (Negative) Ur Leukocyte Esterase Negative (Negative) Administered Medications Sodium Chloride (Nss) 1,000 mls @ 80 mls/hr IV .[id number] SEVERO Stop: 04/11/23 19:59 Last Admin: 04/10/23 19:23 Dose: 80 mls/hr Documented By: YOLIS Discontinued Medications Al Hydrox/Mg Hydrox/Simethicone (Aluminum/Magnesium Susp 30 Ml Udc) 15 ml PO NOW STA Stop: 04/10/23 14:15 Last Admin: 04/10/23 14:22 Dose: 15 ml Documented By: KIMBERLY Sodium Chloride (Nss) 1,000 mls @ 999 mls/hr IV .Q1H1M ONE Stop: 04/10/23 15:14 Last Infusion: 04/10/23 16:26 Dose: Infused Documented By: Admin: 04/10/23 14:21 Dose: 999 mls/hr Documented By: KIMBERLY Ioversol (Optiray 320 500ml) 82 ml IV ONCE ONE Stop: 04/10/23 15:02 Last Admin: 04/10/23 15:02 Dose: 82 ml Documented By: SUSHMA Ondansetron HCl (Ondansetron Inj 2 Mg/Ml 2 Ml Vial) 4 mg IV NOW STA Stop: 04/10/23 14:15 Last Admin: 04/10/23 14:22 Dose: 4 mg Documented By: KIMBERLY Imaging Data Radiologist's Impression: Abdomen/Pelvis CT 04/10/23 14:[address] WITH IV CONTRAST CT DOSE: 1182.38 mGy.cm HISTORY: mid abd pain TECHNIQUE: Multiaxial CT images of the abdomen and pelvis were performed following the use of intravenous contrast. A dose lowering technique was utilized adhering to the principles of ALARA. COMPARISON STUDY: None. FINDINGS: Bibasilar linear densities favor subsegmental atelectasis are scarring. No pneumoperitoneum. No pneumatosis. There are small fat-containing umbilical hernia. Prior mesh repair of a right inguinal hernia. Multiple dilated gas and fluid-filled loops of proximal to mid small bowel with a probable transition point within the distal jejunum of the right lower quadrant on image 290. Therefore, this is consistent with a small bowel obstruction. The exact etiology is indeterminate but could be due to adhesions trace pelvic free fluid. The bladder is unremarkable. The prostate gland is mildly enlarged. Colonic diverticulosis. No evidence for acute diverticulitis. Normal appendix. No retroperitoneal or pelvic lymphadenopathy. The main portal vein is patent. Normal caliber abdominal aorta. The gallbladder, pancreas, adrenal glands, and spleen are unremarkable. Multiple bilateral renal hypodense lesions. The majority these are subcentimeter in size and therefore technically too small to characterize. The larger lesions favor cysts. There are 2 left renal calculi measuring up to 5 mm. No right renal calculi. No ureteral calculi. No hydronephrosis. There are 2 hypodense lesions within the right hepatic lobe which do not clearly represent cysts. These measure up to 1.8 cm in size. These may represent hemangiomas but are indeterminate on this study. IMPRESSION: 1. Small bowel obstruction with the transition point within the right lower quadrant at the distal jejunal loops. 2. Trace pelvic free fluid. This is likely reactive. 3. Left-sided nephrolithiasis. No hydronephrosis. 4. Additional findings as described above. ACT 112: Negative or not required by law. Electronically signed by: Ender hCand M.D. 04/10/2023 3:25 PM Discharge Plan Visit Data Chief Complaint: Abdominal Pain Stated Complaint: abd pain, nauseous ED Provider: Arturo Noe Discharge Problem: SBO (small bowel obstruction), Abdominal pain Patient Disposition: Admitted As Inpatient Discharge Instructions Interventions: ED Discharge Assessment Last Done: 04/10/23 20:06
[2023-04-10 14:18] LABS: Alanine Aminotransferase 18 U/L (7-52); BUN Creatinine Ratio 9.9 (10-20); Bilirubin,Total 0.6 mg/dl (0.2-1.0); Blood Urea Nitrogen 9 mg/dl (6-23); Calcium 9.9 mg/dl (8.6-10.3); Carbon Dioxide 26 mmol/L (21-32); Chloride 101 mmol/L (98-107); Creatinine Clr Calc Pharmacy 120.4 ml/min; Est GFR (African American) 118.4 ml/min; Est GFR (Non-African American) 102.1 ml/min; Glucose 107 mg/dl (70-99(Fasting)); Lipase 21 U/L (11-82)
[2023-04-10] MEDS: SODIUM CHLORIDE 0.9% 1,000 ML IV ONE (14:21)
[2023-04-10] MEDS: ALUMINUM/MAGNESIUM SUSP 30 ML UDC PO STA (14:22)
[2023-04-10] MEDS: ONDANSETRON INJ 2 MG/ML 2 ML VIAL IV STA (14:22)
[2023-04-10 15:00] LABS: Albumin Level 4.6 gm/dl (3.4-5.0); Alkaline Phosphatase 84 U/L (34-104); Aspartate Aminotransferase 15 U/L (13-39); Potassium 3.7 mmol/L (3.5-5.1); Sodium 137 mmol/L (136-145)
[2023-04-10] MEDS: OPTIRAY 320 500ml IV ONE (15:02)
[2023-04-10 15:04] LABS: Troponin I High Sensitivity < 2.3 pg/ml (0-20)
--- NOTE | 2023-04-10 15:27 | CT Scan Report ---
ABDOMEN AND PELVIS CT WITH IV CONTRAST CT DOSE: 1182.38 mGy.cm HISTORY: mid abd pain TECHNIQUE: Multiaxial CT images of the abdomen and pelvis were performed following the use of intrave nous contrast. A dose lowering technique was utilized adhering to the principles of ALARA. COMPARISON STUDY: None. FINDINGS: Bibasilar linear densities favor subsegmental atelectasis are scarring. No pneumoperitoneum . No pneumatosis. There are small fat-containing umbilical hernia. Prior mesh repair of a right ingui nal hernia. Multiple dilated gas and fluid-filled loops of proximal to mid small bowel with a probabl e transition point within the distal jejunum of the right lower quadrant on image 290. Therefore, thi s is consistent with a small bowel obstruction. The exact etiology is indeterminate but could be due to adhesions trace pelvic free fluid. The bladder is unremarkable. The prostate gland is mildly enlar ged. Colonic diverticulosis. No evidence for acute diverticulitis. Normal appendix. No retroperitonea l or pelvic lymphadenopathy. The main portal vein is patent. Normal caliber abdominal aorta. The gall bladder, pancreas, adrenal glands, and spleen are unremarkable. Multiple bilateral renal hypodense le sions. The majority these are subcentimeter in size and therefore technically too small to characteri ze. The larger lesions favor cysts. There are 2 left renal calculi measuring up to 5 mm. No right aram al calculi. No ureteral calculi. No hydronephrosis. There are 2 hypodense lesions within the right he patic lobe which do not clearly represent cysts. These measure up to 1.8 cm in size. These may repres ent hemangiomas but are indeterminate on this study. IMPRESSION: 1. Small bowel obstruction with the transition point within the right lower quadrant at the distal je junal loops. 2. Trace pelvic free fluid. This is likely reactive. 3. Left-sided nephrolithiasis. No hydronephrosis. 4. Additional findings as described above. ACT 112: Negative or not required by law. Electronically signed by: Ender Chand M.D. 04/10/2023 3:25 PM
--- NOTE | 2023-04-10 15:49 | Electrocardiogram Report ---
Test Reason : Blood Pressure : / mmHG Vent. Rate : 086 BPM Atrial Rate : 086 BPM P-R Int : 122 ms QRS Dur : 084 ms QT Int : 336 ms P-R-T Axes : 054 037 029 degrees QTc Int : 402 ms Normal sinus rhythm Normal ECG When compared with ECG of 04-MAR-2021 12:53, No significant change was found Confirmed by Joby Rosario ([id number]) on 04/10/2023 3:48:23 PM Referred By: Confirmed By:Joby Rosario
--- NOTE | 2023-04-10 16:16 | History & Physical Report ---
Date of Service April 10, 2023 Assessment & Plan (1) SBO (small bowel obstruction): Plan: Patient is a 43-year-old male with PMH HTN, HLD, prediabetes, hyperparathyroidism, s/p parathyroidectomy presented to ER with complaint of abdominal pain x 3 days. In ER afebrile. No leukoyctosis. CT abd/pelvis: Small bowel obstruction with the transition point within the right lower quadrant at the distal jejunal loops. Trace pelvic free fluid. This is likely reactive. Left-sided nephrolithiasis. No hydronephrosis. In ER received 1L NSS, zofran No active vomiting but with significant abdominal distention will attempt NG tub placement NPO IVF General surgery consult. ER physician spoke to remote ruby on rails developer. KUB in am CBC, BMP in am (2) HTN (hypertension): Plan: Continue atenolol, losartan as able (3) HLD (hyperlipidemia): Plan: Not on home medications (4) Prediabetes: Plan: A1c: 5.8 on 06/10/2022 Random glucose 107 Monitor BSG on a.m. labs (5) Hyperparathyroidism: Plan: S/P left inferior parathyroidectomy on 03/14/2023 DVT Prophylaxis SCDs Full Code as per discussion with pt Follows with Dr Goss for routine care Pt was seen and care coordinated with Dr Gomes. See addendum I spent a total of 75 minutes reviewing notes, outpatient records, labs, medication, coordinating, documenting and providing care for this patient excluding time spent in the performance of separately billed services. History of Present Illness Chief Complaint: abdominal pain Primary Care Provider: Silviano Goss MD Patient is a 43-year-old male with PMH HTN, HLD, prediabetes, hyperparathyroidism, s/p parathyroidectomy presented to ER with complaint of abdominal pain x 3 days. Patient states 3 days ago started with some nausea and upper abdominal aching. Following day with worsening nausea and several episode s of vomiting yellow color emesis. Reports worsening abdominal discomfort. Reports diffuse abdominal aching, bloating and noted abdominal distention. Has tried Tums and Pepcid without relief. Decreased appetite. Patient states has ate granola bar and a couple of crackers early today. Today has BM that were less than normal amount. Reports did take his BP meds today at noon. Denies any vomiting today. Has had some dry heaves. Denies history of SBO in past. History right inguinal hernia repair. Denies fever/chills, diaphoresis, MCKEON, dizziness, syncope, vision changes, neck pain, CP, SOB, palpitations, cough, sore throat, rhinorrhea, paresthesias, weakness, extremity edema, rashes, urinary symptoms. Allergies Allergy/AdvReac Type Severity Reaction Status Date / Time No Known Allergies Allergy Verified 04/10/23 15:53 Home Medications Medication Instructions Recorded Confirmed Type atenolol 50 mg tablet 50 mg PO DAILY 03/04/21 04/10/23 History losartan 50 mg tablet 50 mg PO QAM 04/10/23 04/10/23 History Past Med/Surg History Medical History Dizziness Intermittent, chronic issue under surveillance by PCP, trial of Meclizine in the past was ineffective Right inguinal hernia Hyperparathyroidism HLD (hyperlipidemia) No meds HTN (hypertension) Palpitations s/p unremarkable holter monitor studies in past per pt Surgical History H/O [place]roidectomy 03[place]14[place]23. [facility] [place] Potter History of hernia repair Family History Other No family history of adverse response to anesthesia Social History Smoking Status: Never smoker Second Hand Exposure: No; Do You Dip or Chew Tobacco: No; Hx Alcohol Use: No Hx Substance Use: No Preferred Language: Stateless Communication Ability: Effective Snath Handle Assembler Required: No Beliefs That Will Affect Care: None Current Living Situation: Spouse Feels Safe at Home: Yes Assistive Devices: Oxygen - Continuous Review of Systems Review of Systems: All systems reviewed & are unremarkable except as noted in HPI & below Physical Exam Physical Exam: General: no distress, WDWN Head: normocephalic, atraumatic Eyes: conjunctiva non-injected, anicteric ENT: normal inspection external ears, nose, mucous membranes moist Neck: supple, trachea midline Lungs: clear, no respiratory distress, no wheezing/rhonchi/rales CV: RRR, no murmur, no pretibial edema Abd: diminished BS, +distended and taught abdomen, +mild diffuse tenderness to palpation Ext: no cyanosis, no calf tenderness Neuro: A&O x 3, no focal deficits noted, normal affect Skin: warm, dry Results & Data Results & Data Vital Signs (Past 12 Hours) Vital Signs Temp Pulse Resp BP Pulse Ox O2 Del Method 04/10/23 12:59 36.3 C L 100 H 20 151/91 H 97 Room Air Laboratory Results Short CBC 04/10/23 Range/Units 13:30 WBC 5.69 (4.8-10.8) K/ul Hgb 15.8 (14.0-18.0) g/dl Hct 47.1 (42.0-52.0) % Plt Count 274 (130-400) K/uL BMP 04/10/23 04/10/23 13:30 14:28 Sodium TNP 137 Potassium TNP 3.7 Chloride 101 Carbon Dioxide 26 BUN 9 Creatinine 0.91 Glucose 107 H Calcium 9.9 Liver Function 04/10/23 04/10/23 Range/Units 13:30 14:28 Total Bilirubin 0.6 (0.2-1.0) mg/dl AST TNP 15 ALT 18 (7-52) U/L Alkaline Phosphatase TNP 84 Albumin TNP 4.6 Urine 04/10/23 Range/Units 13:30 Urine Color Yellow Urine Appearance Clear (Clear) Urine pH 7.0 (4.5-7.5) Ur Specific [place] 1.013 (1.000-1.030) Urine Protein Negative (Negative) Urine Glucose (UA) Negative (Negative) Diagnostic Findings Abdomen/Pelvis CT 04/10/23 14:[address] WITH IV CONTRAST CT DOSE: 1182.38 mGy.cm HISTORY: mid abd pain TECHNIQUE: Multiaxial CT images of the abdomen and pelvis were performed following the use of intravenous contrast. A dose lowering technique was utilized adhering to the principles of ALARA. COMPARISON STUDY: None. FINDINGS: Bibasilar linear densities favor subsegmental atelectasis are scarring. No pneumoperitoneum. No pneumatosis. There are small fat-containing umbilical hernia. Prior mesh repair of a right inguinal hernia. Multiple dilated gas and fluid-filled loops of proximal to mid small bowel with a probable transition point within the distal jejunum of the right lower quadrant on image 290. Therefore, this is consistent with a small bowel obstruction. The exact etiology is indeterminate but could be due to adhesions trace pelvic free fluid. The bladder is unremarkable. The prostate gland is mildly enlarged. Colonic diverticulosis. No evidence for acute diverticulitis. Normal appendix. No retroperitoneal or pelvic lymphadenopathy. The main portal vein is patent. Normal caliber abdominal aorta. The gallbladder, pancreas, adrenal glands, and spleen are unremarkable. Multiple bilateral renal hypodense lesions. The majority these are subcentimeter in size and therefore technically too small to characterize. The larger lesions favor cysts. There are 2 left renal calculi measuring up to 5 mm. No right renal calculi. No ureteral calculi. No hydronephrosis. There are 2 hypodense lesions within the right hepatic lobe which do not clearly represent cysts. These measure up to 1.8 cm in size. These may represent hemangiomas but are indeterminate on this study. IMPRESSION: 1. Small bowel obstruction with the transition point within the right lower quadrant at the distal jejunal loops. 2. Trace pelvic free fluid. This is likely reactive. 3. Left-sided nephrolithiasis. No hydronephrosis. 4. Additional findings as described above. ACT 112: Negative or not required by law. Electronically signed by: Ender Chand M.D. 04/10/2023 3:25 PM Supervising Physician Co-Signing Physician Notes I have seen and discussed the case with the collaborating WESLEY. I agree with the above H&P. I have reviewed and confirmed the patients medical history, the findings on physical examination, and the patients diagnosis and [facility] and agree with the information documented. In short, Mr. Palma is a 43 year old gentleman with history of HTN, HLD, prediabetes, hyperparathroidism s/p parathyroidectomy admitted for management of SBO. Patient denies prior history of obstruction prior. Notes one previous abdominal surgery for hernia repair. States symptoms started Monday and progressed--noted that he passed some stool earlier this morning, then sudden tight/sharp pain followed. CT abdomen with transition point in RLQ. Physical exam notable for tense, distended abdomen. Few BS in LLQ, freuquent high pitched RUQ/RLQ, mild tenderness to palpation #SBO -NPO -Failed NGT, however nausea improving CTM. -Gen Surgery consulted--conservative management Rest of plan as above I spent a total of 35 minutes coordinating, documenting, and providing care for this patient excluding time spent in the performance of separately billed services. All of the aforementioned completed outside of collaborating with the assigned physician nurseryman assistant for full treatment plan.
[2023-04-10] MEDS ORDERED: ONDANSETRON INJ 2 MG/ML 2 ML VIAL IV PRN (19:00)
[2023-04-10] MEDS: SODIUM CHLORIDE 0.9% 1,000 ML IV SCH (19:23)
--- NOTE | 2023-04-10 19:28 | Surgery Consultation ---
<Statement entered by Baudilio Kirkpatrick DO - 04/11/23 21:03> This case was discussed with the surgical PA, I agreed with this plan. Date of Consultation April 10, 2023 Assessment & Plan (1) SBO (small bowel obstruction): The patient is being admitted on the hospital service. From surgical perspective we recommend proceeding as follows: Provide analgesics Provide antiemetics Follow serial labs Follow serial exams Implement n.p.o. status Provide IV fluid for hydration Attempts were made by nursing staff in the emergency department placing NG tube. They tried 3 times without success. At this point the patient refused this modality. He has not had any emesis in several hours and he has minimal abdominal pain at this time therefore I feel we can withhold this modality for the present time. I did discuss with the patient that if he has further emesis or worsening of his abdominal exam this modality may need to be reconsidered I did discuss with the patient that we would like to treat this condition in a conservative manner without surgery. At the present time I feel as though the conservative plan outlined above is reasonable as the patient is normotensive with only slight tachycardia (heart rate is 100). He is also noted to be afebrile without leukocytosis or acute kidney injury. We will continue to follow along while the patient is hospitalized. I did discuss with the patient that we would reinstitute oral intake beginning with c lear liquids when he has improvement of his abdominal exam and presenting symptomatology Addendum (11:10 PM) Patient revisited at bedside. He denies any worsening abdominal pain. He denies any nausea or vomiting at this time. He does note that he just had a loose bowel movement. We will continue with plan as noted above Addendum (5:55 AM) Patient notes that his abdominal pain is markedly improved. He denies any nausea or vomiting. The patient notes that he has had multiple bowel movements since admission. We will continue with plan as outlined above History of Present Illness Reason for Consultation: Small bowel obstruction Attending Physician: Nicolasa Gomes MD History of Present Illness This is a 43-year-old male who presented the emergency department secondary to 3 days of generalized abdominal pain. The patient notes that in addition he feels bloated with abdominal tightness. He notes that the pain has been present and on and off fashion with associated nausea and vomiting. He has not had any fevers, shakes, or chills. He notes that there are no close contacts sick with similar symptoms. Patient says that he did have 2 bowel movements earlier today. He notes that 1 bowel movement was loose and 1 was a semiformed stool. In addition the patient notes he has been passing flatus since arrival to the emergency department. The only abdominal surgery he has had is a right inguinal herniorrhaphy and he has had mesh utilized for this. Since arrival to the hospital the patient has had labs and imaging which independent reviewed. CBC revealed white blood cell count, hemoglobin, hematoc rit, platelet count were normal. Chemistry profile showed sodium and potassium along with the BUN and creatinine were normal. There is no elevation of patient's LFTs or lipase. Urinalysis was not taken of infection. CT scan abdomen pelvis was performed. This showed concern for small bowel obstruction with a transition point in the right lower quadrant at the distal jejunal loops. A fat-containing umbilical hernia was noted. There is evidence of a prior right inguinal hernia repair with mesh. There is no evidence of appendicitis. No pneumatosis or free intraperitoneal air was noted. At the time of my interview the patient was resting comfortably in bed and he was in no distress. Allergies Allergy/AdvReac Type Severity Reaction Status Date / Time No Known Allergies Allergy Verified 04/10/23 15:53 Home Medications Medication Instructions Recorded Confirmed Type atenolol 50 mg tablet 50 mg PO DAILY 03/04/21 04/10/23 History losartan 50 mg tablet 50 mg PO QAM 04/10/23 04/10/23 History Patient History Medical History Dizziness Intermittent, chronic issue under surveillance by PCP, trial of Meclizine in the past was ineffective Right inguinal hernia Hyperparathyroidism HLD (hyperlipidemia) No meds HTN (hypertension) Palpitations s/p unremarkable holter monitor studies in past per pt Surgical History H/[place] [facility] [place] History of hernia repair Family History Other No family history of adverse response to anesthesia Social History Smoking Status: Never smoker Second Hand Exposure: No; Do You Dip or Chew Tobacco: No; Hx Alcohol Use: No Hx Substance Use: No Preferred Language: Belarusian Communication Ability: Effective Director Of Product Development Required: No Beliefs That Will Affect Care: None Current Living Situation: Spouse Feels Safe at Home: Yes and No Is there a partner from a previous relationship who is making you feel unsafe now?: No Assistive Devices: Oxygen - Continuous Review of Systems Constitutional: no fever and no chills Ear, Nose, Mouth, Throat: no hearing loss Respiratory: no cough and no dyspnea Cardiovascular: no chest pain Gastrointestinal: as per Subjective / HPI Genitourinary: no dysuria Musculoskeletal: no back pain Integumentary: no rash Neurologic: no localized weakness Physical Exam Constitutional: WD/WN, vitals as above Eyes: no conjunctival abnormality ENMT: Ears: no hearing impairment and no external ear abnormality Mouth: no oropharynx abnormality Neck: trachea midline Respiratory: normal respiratory effort, lungs clear to auscultation Cardiovascular: Rate/Rhythm: regular rate and regular rhythm Gastrointestinal (Abdomen): Abdomen is soft and nonrigid. There is mild distention noted. There is no rebound tenderness or guarding. The patient did have some minimal generalized tenderness with palpation. I do not appreciate any inguinal hernias. The patient did have a small umbilical hernia Musculoskeletal: No calf tenderness Skin: no rashes Neurologic: moves all extremities Psychiatric: A+Ox3, euthymic affect Results & Data Vital Signs (Past 12 Hours) Vital Signs Temp Pulse Resp BP Pulse Ox O2 Del Method 04/10/23 12:59 36.3 C L 100 H 20 151/91 H 97 Room Air PG Care Time/CCT Total # of Minutes Spent Total Time Spent with Patient: Total time spent is greater than 50% in coordination of care (as documented) at patient's floor/unit and/or counseling patient: Coding Level of Care Code 14253 IN/OBS CONSULT LVL 5,80M Diagnoses SBO (small bowel obstruction) K56.609
--- OUTSIDE RECORDS SUMMARY | 2023-04-10 19:51 | External Medical Summary | Summary of Care ---
Author Name Unknown Organization [facility] Address [address] [facility] [place] [address] Phone [phone] Care Team Providers Care Animal Cruelty Investigation Supervisor Name Role Phone Silviano Goss MD Primary Care Provide r Reason for Visit * Reason Comments Post-Op Encounter Details Date Type Department Care Team (Latest Contact Info) Description 03/24/2023 11:00 AM EST Office Visit Otolaryngology [facility] [address] [place] [address] Kevin Potter DO [address] [place] [address] Hyperparathyroidism (HCC)* Allergies No known active allergiesdocumented as of this encounter (statuses as of 03/24/2023) Medications Medication Sig Dispensed Refills Start Date End Date Status Losartan Potassium 50 MG Oral Tablet (Cozaar)Indications:H TN, goal below 130/80 TAKE ONE TABLET BY MOUTH IN THE MORNING 30 Tablet 8 12/05/2022 Active Tums E-X 750 750 MG Oral Tablet Chewable (calcium CARBonate) Chew & swallow 2 Tablets by mouth in the morning and 2 Tablets before bedtime. 56 Tablet 0 03/14/2023 Active Atenolol 50 MG Oral Tablet (Tenormin)Indications :HTN, goal below 130/80 Take 1 Tablet by mouth in the morning. In the morning.. 30 Tablet 1 03/20/2023 Active documented as of this encounter (statuses as of 03/24/2023) Active Problems Problem Noted Date Diagnosed Date Prediabetes 05/16/2022 Overview: Per Prediabetes protocol Hyperparathyroidism 12/24/2020 HTN, goal below 130/80 12/24/2020 Mixed hyperlipidemia 12/24/2020 Non-recurrent unilateral ing uinal hernia without obstruction or gangrene 12/24/2020 documented as of this encounter (statuses as of 03/24/2023) Immunizations Name Administration Dates Next Due TDAP (age 10 and older)(Boostrix) 02/04/2014 documented as of this encounter Social History Tobacco Use Types Packs/Day Years Used Date Smoking Tobacco: Never Smokeless Tobacco: Never Alcohol Use Standard Drinks/Week Comments Yes 0 (1 standard drink = 0.6 oz pur e alcohol) 1 beer per month Sex and Gender Information Value Date Recorded Sex Assigned at Not on file Gender Identity Not on file Sexual Orientation Not on file Job Start Date Occupation Industry Not on file Not on file Not on file documented as of this encounter Last Filed Vital Signs Vital Sign Reading Time Taken Comments Blood Pressure - - Pulse - - Temperature 36.4 C (97.5 F) 03/24/2023 10:[address] Respiratory Rate - - Oxygen Saturation - - Inhaled Oxygen Concentration - - Weight 92.8 kg (204 lb 8 oz) 03/24/2023 10:59 AM EST Height 188 cm (6' 2.02") 03/24/2023 10:59 AM EST Body Mass Index 26.24 03/24/2023 10:59 AM EST documented in this encounter Progress Notes * Kevin Potter, - 03/24/2023 11:09 AM EST ENT Post Op Clinic Note 03/24/2023 Reji Palma is a 43 year old male who presents to clinic for post surgical follow up. The patient denies any problems since discharge. Denies numbness, tingling, parasthesia, or signs of infection. Physical Exam: Gen: Good voice quality HEENT: Incision is clean, dry, and intact without evidence of infection or fluid collection Assessment: S/p PTX Plan: - Pathology reviewed and all questions answered. - May now shower and drive as long as not on pain medication. - No strenuous activity for one more week. - Scar formation was discussed. Advised to avoid sun exposure to the healing wound for up to a year. Also recommended that six weeks after surgery to massage the wound with Cocco butter or Vitamin E cream to soften the healing scar. - patient declined laryngoscopy today. - follow up with endocrinology - RTC PRN Kevin Potter DO, FACS [facility] Otolaryngology [facility] [place] 03/24/2023 11:10 AM documented in this encounter Nursing Notes * Radhika Ford LPN - 03/24/2023 10:56 AM EST Pt presents today for a post op from having a Parathyroidectomy on 03/14/23. Pt states he is not having any concerns and everything seems to be doing well. documented in this encounter Plan of Treatment Upcoming Encounters Date Type Department Care Team (Late st Contact Info) Description 05/31/2023 3:20 PM EDT Office Visit Family Medicine [address] [phone] Silviano Goss MD [address] [place] [address] [place] [phone] Health Maintenance Due Date Last Done Comments Hepatitis B (1 of 3 - 3-dose series) 1980 COVID-19 Vaccine (#1) 1979 Depression Screening 1991 HIV Screening 1994 Hepatitis C Screening 1997 Influenza Vaccine (FLU shot) (#1) 2022 09/22/2016 HbA1c 06/11/2023 06/10/2022, 12/24/2020 DTaP,Tdap,and Td Vaccines (2 - Td or Tdap) 02/05/2024 02/04/2014 GFR 03/20/2024 03/20/2023, 08/05, 06/10/2022, Additional history exists Albumin/Creatinine Ratio 06/10/2025 06/10/2022 Lipid Panel 06/11/2027 06/10/2022, 12/05, 08/22/2018, Additional history exists GARDASIL-HPV IMMUNIZATION SERIES Aged Out No longer eligible based on patient's age to complete this topic MENINGOCOCCAL (MENACTRA/MENVEO) Aged Out No longer eligible based on patient's age to complete this topic Pneumococcal Vaccine: Pediatrics (0 to 5 Years) and At-Risk Patients (6 to 64 Years) Aged Out No longer eligible based on patient's age to complete this topic documented as of this encounter Medical Devices Not on filedocumented as of this encounter Visit Diagnoses Diagnosis Hyperparathyroidism (HCC)- Primary Hyperparathyroidism, unspecified documented in this encounter Care Teams Animal Cruelty Investigation Supervisor Relationship Specialty Start Date End Date Silviano Goss MD [address] [place] [address] [place] [phone] PCP - General Family Medicine 06/03/22 documented as of this encounter
--- OUTSIDE RECORDS SUMMARY | 2023-04-10 19:51 | External Medical Summary | Summary of Care ---
Author Name Unknown Organization [facility] Address [address] [place] [address] Phone [phone] Care Team Providers Care Geothermal Heat Pump Machinist Name Role Phone Silviano Goss MD Primary Care Provide r Reason for Visit * Reason Comments Outpatient Testing Encounter Details Date Type Department Care Team (Latest Contact Info) Description 03/20/2023 8:20 AM EST Laboratory Laboratory [address] [place] [phone] [place] [address] Primary hyperparathyroidism (HCC); [employer] Other*[id number] Allergies No known active allergiesdocumented as of this encounter (statuses as of 03/20/2023) Medications Medication Sig Dispensed Refills Start Date [...] as of this encounter (statuses as of 03/20/2023) Active Problems Problem Noted Date Diagnosed Date Prediabetes 05/16/2022 Overview: Per Prediabetes protocol Hyperparathyroidism 12/24/2020 HTN, goal below 130/80 12/24/2020 Mixed hyperlipidemia 12/24/2020 Non-recurrent unilateral ing uinal hernia without obstruction or gangrene 12/24/2020 documented as of this encounter (statuses as of 03/20/2023) Immunizations Name Administration Dates Next Due TDAP [...] on file documented as of this encounter Plan of Treatment Upcoming Encounters Date Type Department Care Team (Late st Contact Info) Description 03/24/2023 11:00 AM EST Office Visit Otolaryngology [facility] [address] [place] [address] Kevin Potter DO [address] [place] [address] 05/31/2023 3:20 PM EDT Office Visit Family Medicine [address] [place] [phone] Silviano Goss MD [address] [place] [address] [place] [phone] Pending Results Name Type Priority Associated Diagnoses Date /Time COMPREHENSIVE METABOLIC PANEL Lab Routine Primary hyperparathyroidism (HCC) 03/20/2023 8:08 AM EST MYCODE INITIAL ADULT Lab Routine [employer] Other*[id number] 03/20/2023 8:08 AM EST MYCODE INITIAL ADULT-PINK Lab Routine [employer] Other*[id number] 03/20/2023 8:08 AM EST MYCODE SST1 Lab Routine [employer] Other*[id number] 03/20/2023 8:08 AM EST MYCODE SST2 Lab Routine [employer] Other*[id number] 03/20/2023 8:08 AM EST Health Maintenance Due Date Last Done Comments Hepatitis B (1 of 3 - 3-dose series) 1980 COVID-19 Vaccine (#1) 1979 Depression Screening 1991 HIV Screening 1994 Hepatitis C Screening 1997 Influenza Vaccine (FLU shot) (#1) 2022 09/22/2016 HbA1c 06/11/2023 06/10/2022, 12/24/2020 GFR 08/26/2023 08/25/2022, 09/2022, 12/24/2020, Additional history exists DTaP,Tdap,and Td Vaccines (2 - Td or Tdap) 02/05/2024 02/04/2014 Albumin/Creatinine Ratio 06/10/2025 06/10/2022 Lipid Panel 06/11/2027 [...] as of this encounter Visit Diagnoses Diagnosis Primary hyperparathyroidism (HCC) Primary hyperparathyroidism [employer] Other*[id number] documented in this encounter Care Teams Geothermal Heat Pump Machinist Relationship Specialty Start Date End Date Silviano Goss MD [address] [place] [address] [place] [phone] PCP - General Family Medicine 06/03/22 documented as of this encounter
--- OUTSIDE RECORDS SUMMARY | 2023-04-10 19:51 | External Medical Summary | Summary of Care ---
Author Name Unknown Organization [facility] Address [address] [place] [address] Phone [phone] Care Team Providers Care Bag Presser Name Role Phone Silviano Goss MD Primary Care Provide r Reason for Visit * Reason Comments Re-Check 6 mo recheck Encounter Details Date Type Department Care Team (Latest Contact Info) Description 03/20/2023 7:40 AM EST Office Visit Family Medicine [address] [phone] Silviano Goss MD [address] [place] [address] [place] [address] HTN, goal below 130/80*; Hyperparathyroidism (HCC); S/P subtotal parathyroidectomy (HCC) Allergies No known active allergiesdocumented as of this encounter (statuses as of 03/20/2023) Medications Medication Sig Dispensed Refills Start Date End Date Status Losartan Potassium 50 MG Oral Tablet (Cozaar)Indicatio ns:HTN, goal below 130/80 TAKE ONE TABLET BY MOUTH IN THE MORNING 30 Tablet 8 12/05/2022 Active Tums E-X 750 750 MG Oral Tablet Chewable (calcium CARBonate) Chew & swallow 2 Tablets by mouth in the morning and 2 Tablets before bedtime. 56 Tablet 0 03/14/2023 Active Atenolol 50 MG Oral Tablet (Tenormin)Indicat ions:HTN, goal below 130/80 Take 1 Tablet by mouth in the morning. In the morning.. 30 Tablet 1 03/20/2023 Active Atenolol 25 MG Oral Tablet (Tenormin)Indicat ions:HTN, goal below 130/80 TAKE ONE TABLET BY MOUTH EVERY MORNING 30 Tablet 5 02/09/2023 03/20/2023 Discontinued (Refill) oxyCODONE HCl 5 MG Oral Tablet (Oxy IR) Take 1 Tablet by mouth every 6 hours as needed for severe pain. 11 Tablet 0 03/14/2023 03/20/2023 Discontinued (Patient preference/d iscontinuati on) documented as of this encounter (statuses as [...] Sign Reading Time Taken Comments Blood Pressure 154/96 03/20/2023 7:43 AM EST Pulse 95 03/20/2023 7:43 AM EST Temperature 36.5 C (97.7 F) 03/20/2023 7:43 AM ES T Respiratory Rate - - Oxygen Saturation 105% 03/20/2023 7:43 AM EST Inhaled Oxygen Concentration - - Weight 91.1 kg (200 lb 12.8 oz) 03/20/2023 7:43 AM EST Height - - Body Mass Index 25.78 03/14/2023 6:03 AM EST documented in this encounter Progress Notes * Silviano Goss MD - 03/20/2023 7:47 AM EST Subjective: HPI: Reji Palma is a 43 year old male with hx of prediabetes, HTN, HLD, Vertigo, R Inguinal Hernia repair and hyperparathyroidism seen for HTN: - currently on atenolol 25mg daily and Losartan 50mg daily - home BP readings 120-130s/90s - pt would like to try atenolol 50mg daily Recently underwent L inferior parathyroid gland removal - Hypercellular enlarged parathyroid tissue -doing well - denied any fever Patient Active Problem List Diagnosis Code Hyperparathyroidism (HCC) E21.3 HTN, goal below 130/80 I10 Mixed hyperlipidemia E78.2 Non-recurrent unilateral inguinal hernia without obstruction or gangrene K40.90 Prediabetes R73.03 Current Outpatient Medications Medication Sig Dispense Refill Losartan Potassium 50 MG Oral Tablet (Cozaar) TAKE ONE TABLET BY MOUTH IN THE MORNING 30 Tablet 8 Tums E-X 750 750 MG Oral Tablet Chewable (calcium CARBonate) Chew & swallow 2 Tablets by mouth in the morning and 2 Tablets before bedtime. 56 Tablet 0 Atenolol 50 MG Oral Tablet (Tenormin) Take 1 Tablet by mouth in the morning. In the morning.. 30 Tablet 1 No current facility-administered medications for this visit. Past Medical History: Diagnosis Date COVID-19 02/24/2021 admitted HTN, goal below 130/80 Past Surgical History: Procedure Laterality Date EXPLORE PARATHYROID GLANDS N/A 03/14/2023 PARATHYROIDECTOMY performed by Kevin Potter DO at [place] [facility] [place] PROCEDURE - GENERAL Right 01/25/2021 Inguinal hernia Review of patient's allergies indicates: No Known Allergies No family history on file. Social History Tobacco Use Smoking status: Never Smokeless tobacco: Never Substance Use Topics Alcohol use: Yes Comment: 1 beer per month Vaping/E-Cigarette Use Vaping/E-Cigarette Substances Vaping/E-Cigarette Devices ROS: -Per HPI OBJECTIVE: BP 154/96 | Pulse 95 | Temp 36.5 C (97.7 F) | Wt 91.1 kg (200 lb 12.8 oz) | SpO2 105% | BMI 25.78 kg/m | BSA 2.18 m PHYSICAL EXAM: Vitals are reviewed General:. NAD, well developed HEENT:.incision is healing well (mild swelling) Normal Conjunctiva, EOMI Cardiac:. Normal S1, S2, no murmur Lungs:. CTA, no wheezing or crackles MSK:. Normal gait Psych:. AAOx3, normal affect ASSESSMENT/PLAN: Increase the atenolol dose HTN, goal below 130/80 (Primary) - Atenolol 50 MG Oral Tablet (Tenormin); Take 1 Tablet by mouth in the morning. In the morning.. Hyperparathyroidism (HCC) - BASIC METABOLIC PANEL S/P subtotal parathyroidectomy (HCC) - BASIC METABOLIC PANEL Follow Up: Return in about 2 months (around 05/19/2023). Silviano Goss MD Family medicine, [address] [address] documented in this encounter Nursing Notes * Luna Herring, [facility] - 03/20/2023 7:42 AM EST He is here for a 6 mo recheck today. Sometimes when is lying down at night he feels short of breath. No other concerns. documented in this encounter Plan of Treatment Upcoming Encounters Date Type Department Care Team (Late st Contact Info) Description 03/24/2023 11:00 AM EST Office Visit Otolaryngology [facility] [address] [place] [address] Kevin Potter DO [address] [place] [address] 05/31/2023 3:20 PM EDT Office Visit Family Medicine [address] [place] [phone] Silviano Goss MD [address] [place] [address] [place] [phone] Health Maintenance Due Date Last Done Comments [...] as of this encounter Visit Diagnoses Diagnosis HTN, goal below 130/80- Primary Unspecified essential hypertension Hyperparathyroidism (HCC) Hyperparathyroidism, unspecified S/P subtotal parathyroidectomy (HCC) Other postprocedural status documented in this encounter Care Teams Bag Presser Relationship Specialty Start Date End Date Silviano Goss MD [address] [place] [address] [place] [phone] PCP - General Family Medicine 06/03/22 documented as of this encounter"
--- OUTSIDE RECORDS SUMMARY | 2023-04-10 19:51 | External Medical Summary | Summary of Care ---
Author Name Unknown Organization [facility] Address [address] [place] [address] Phone [phone] Care Team Providers Care Transcriber Name Role Phone Silviano Goss MD Primary Care Provide r Encounter Details Date Type Department Care Team (Late st Contact Info) Description 03/27/2023 Orders Only Outcomes Research Department [address] [place] [address] Ambreen Fan CHRA [employer] Research Other*[id number] Allergies No known active allergiesdocumented as of this encounter (statuses as of 03/27/2023) Medications Medication Sig Dispensed Refills Start Date [...] as of this encounter (statuses as of 03/27/2023) Active Problems Problem Noted Date Diagnosed Date Prediabetes 05/16/2022 Overview: Per Prediabetes protocol Hyperparathyroidism 12/24/2020 HTN, goal below 130/80 12/24/2020 Mixed hyperlipidemia 12/24/2020 Non-recurrent unilateral ing uinal hernia without obstruction or gangrene 12/24/2020 documented as of this encounter (statuses as of 03/27/2023) Immunizations Name Administration Dates Next Due TDAP [...] 3:20 PM EDT Office Visit Family Medicine [address] [place] [phone] Silviano Goss MD [address] [place] [address] [place] [phone] Scheduled Orders Name Type Priority Associated Diagnoses Orde r Schedule MYCODE SUBSEQUENT ADULT Lab Routine [employer] Other*[id number] Every 6 Months for 2 Occurrences starting 03/27/2023 until 04/15/2024 Health Maintenance Due Date Last Done Comments [...] as of this encounter Visit Diagnoses Diagnosis [employer] Other*[id number] documented in this encounter Care Teams Transcriber Relationship Specialty Start Date End Date Silviano Goss MD [address] [place] [address] [place] [phone] PCP - General Family Medicine 06/03/22 documented as of this encounter
--- OUTSIDE RECORDS SUMMARY | 2023-04-10 19:52 | External Medical Summary | Summary of Care ---
Author Name Unknown Organization [facility] Address [address] [place] [address] Phone [phone] Care Team Providers Care Welfare Visitor Name Role Phone Silviano Goss MD Primary Care Provide r Reason for Visit * Auth/Cert Specialty Diagnoses / Procedures Referred By Manny chow Referred To Contact Diagnoses Hyperparathyroidism (HCC) Hyperparathyroidism (HCC) [E21.3] Procedures EXPLORE PARATHYROID GLANDS PARATHYROIDECTOMY Referral ID Status Reason Start Date Expiration Date Visits Re quested Visits Authorized [id number] Encounter Details Date Type Department Care Team (Latest Contact Info) Description 03/14/2023 5:41 AM EST - 03/14/2023 1:04 PM EST Hospital Encounter [facility], OPERATING ROOM [facility] [address] [place], [place] [id number] Kevin Potter DO [address] [place] [address] Discharge Disposition: Home - Self Care Allergies No known active allergiesdocumented as of this encounter (statuses as of 03/15/2023) Medications Medication Sig Dispensed Refills Start Date End Date Status Losartan Potassium 50 MG Oral Tablet (Cozaar)Indicatio ns:HTN, goal below 130/80 TAKE ONE TABLET BY MOUTH IN THE MORNING 30 Tablet 8 12/05/2022 Active Atenolol 25 MG Oral Tablet (Tenormin)Indicat ions:HTN, goal below 130/80 TAKE ONE TABLET BY MOUTH EVERY MORNING 30 Tablet 5 02/09/2023 Active oxyCODONE HCl 5 MG Oral Tablet (Oxy IR) Take 1 Tablet by mouth every 6 hours as needed for severe pain. 11 Tablet 0 03/14/2023 Active Tums E-X 750 750 MG Oral Tablet Chewable (calcium CARBonate) Chew & swallow 2 Tablets by mouth in the morning and 2 Tablets before bedtime. 56 Tablet 0 03/14/2023 Active Tums E-X 750 750 MG Oral Tablet Chewable (calcium CARBonate) Take 2 Tablets by mouth in the morning and 2 Tablets before bedtime. Do all this for 14 days. 56 Tablet 0 03/14/2023 03/14/2023 Discontinued (Refill) oxyCODONE HCl 5 MG Oral Tablet (Oxy IR) Take 1 Tablet by mouth every 6 hours as needed for Pain, Severe for up to 5 days. 11 Tablet 0 03/14/2023 03/14/2023 Discontinued (Refill) documented as of this encounter (statuses as of 03/15/2023) Active Problems Problem Noted Date Diagnosed Date Prediabetes 05/16/2022 Overview: Per Prediabetes protocol Hyperparathyroidism 12/24/2020 HTN, goal below 130/80 12/24/2020 Mixed hyperlipidemia 12/24/2020 Non-recurrent unilateral ing uinal hernia without obstruction or gangrene 12/24/2020 documented as of this encounter (statuses as of 03/15/2023) Immunizations Name Administration Dates Next Due TDAP [...] Sign Reading Time Taken Comments Blood Pressure 129/91 03/14/2023 12:45 PM EST Pulse 103 03/14/2023 12:45 PM EST Temperature 36.3 C (97.3 F) 03/14/2023 11:[address] Respiratory Rate 13 03/14/2023 12:45 PM EST Oxygen Saturation 98% 03/14/2023 12:45 PM EST Inhaled Oxygen Concentration - - Weight 89.9 kg (198 lb 4.8 oz) 03/14/2023 6:03 A M EST Height 188 cm (6' 2") 03/14/2023 6:03 AM EST Body Mass Index 25.46 03/14/2023 6:03 AM EST documented in this encounter Discharge Instructions * Discharge Instr - AVS* Devin Singletary MD - 03/14/2023 9:21 AM EST Date of Discharge: 03/14/[address] Potter of the department of ENT at [phone] during business hours and after hours for any questions or test results. The information below provides you with the instructions and the list of medications you need to betaking following discharge from the hospital. If you have any questions, please ask before leaving.Please carry this letter with you when you see your doctor in the clinic. If you have questions, you can reach us at the numbers above. Diet: Regular diet, as tolerated If nausea should occur, have clear liquids only until stomach has settled. Activity: Rest today and tomorrow, and then increase activity as tolerated. No strenuous activity for 2 weeks. Driving: One week and no driving within 24 hours of taking narcotic pain medication Date you may return to work or school: Two weeks These follow-up appointments have been scheduled or are in the process of being scheduled. If you have questions about your appointments, please call . When asked to state the name of the physician, please say "Hospital Discharge". Follow up in one week with Dr. Potter. Special Instructions: Post-Op Instructions - Thyroidectomy/Parathyroidectomy Contact our clinic at the number listed above for any of the following concerns: Bleeding in Your Neck- Some bruising is normal but you should not have rapid or excess bruising andthis may be owing to bleeding in your neck. If this is severe or you are panicked owing to trouble breathing, sudden swelling in your throat, or are unable to swallow, call [phone] immediately. Low Calcium- If you develop numbness and tingling in your face, lips, fingertips, or toes take two additional doses of calcium carbonate (TUMS). The symptoms should go away in 15 to 30 minutes. If the symptoms persist, at 30 minutes you can repeat this. If the symptoms do still do not go away, callthe ENT clinic. Infection- If you have a temperature above 100.4F by mouth for 2 readings taken 4 hours apart, increased redness and/or warmth at the incision site, puslike drainage, or pain not relieved by pain pills, there may be an infection in your neck. Please call your the ENT clinic. Care for the Surgical Site You may shower, but keep neck area dry. If it gets damp, pat dry with a clean towel. Do NOT apply any ointment or lotion to the incision. Do NOT remove the surgical tape covering your incision. You will be provided with instructions on how to remove the tape gradually after your follow up appointment. documented in this encounter H&P Notes * Vinicius Caballero MD - 03/14/2023 7:04 AM EST History & Physical - Otolaryngology [facility] [address] Name: Reji Palma Location: OR [facility] Date: 03/14/2023 Time: 7:04 AM CC: Primary hyperparathyroidism HPI: The patient presents today for scheduled surgery. He denies any changes to health since last clinic visit. Denies recent illness. Denies use of ASA, NSAIDs, or other anticoagulants. Medical History: Patient Active Problem List Diagnosis Code Hyperparathyroidism (HCC) E21.3 HTN, goal below 130/80 I10 Mixed hyperlipidemia E78.2 Non-recurrent unilateral inguinal hernia without obstruction or gangrene K40.90 Prediabetes R73.03 Past Medical History: Diagnosis Date COVID-19 02/24/2021 admitted HTN, goal below 130/80 Past Surgical History: Procedure Laterality Date NONE PROCEDURE - GENERAL Right 01/25/2021 Inguinal hernia Review of patient's allergies indicates: No Known Allergies Social History Tobacco Use Smoking status: Never Smokeless tobacco: Never Substance Use Topics Alcohol use: Yes Comment: 1 beer per month Vaping/E-Cigarette Use Vaping/E-Cigarette Substances Vaping/E-Cigarette Devices No family history on file. Review of Systems: Negative unless otherwise indicated in HPI. Physical Exam: Vital Signs: BP: 157 mmHg/90 mmHg (03/14/23638) Pulse: 85 (03/14/23638) Temp: 36.5 C (03/14/23638) Resp: 10 (03/14/23638) SpO2: 100 % (03/14/23638) No acute distress Regular rate and rhythm without murmur Lungs clear to auscultation bilaterally No hoarseness Impression: Reji Palma is a 43 year old male who presents with the above diagnosis for scheduled surgery. Plan: - NPO - SCDs - No antibiotics - Proceed with parathyroidectomy Vinicius Caballero MD Otolaryngology - Head & Neck Surgery Resident documented in this encounter Nursing Notes * Dedra Mcgarry RN - 03/14/2023 10:03 AM EST Dual Licensed Skin Assessment completed by ANGELES pino and ANGELES mancilla. The patient is/has a N/A Skin Breakdown (includes non blanchable erythema): Yes - Surgical/Procedural changes only. * Ellen Tiwari RN - 03/14/2023 6:44 AM EST Dual Licensed Skin Assessment completed by Ellen Tiwari RN and Patti Borja RN. The patient is/has a N/A Skin Breakdown (includes non blanchable erythema): No * Aida Peña RN - 03/10/2023 2:27 PM EST NO ANESTHESIA EVAL REQUESTED PER CASE DOCUMENTATION. Pre-operative chart review completed-instructions provided based on current medication list in EPIC Presurgery instructions sent to patient via Updater message-no call made PREOP PATIENT INFORMATION AND EDUCATION: MEDICATION INSTRUCTIONS: The day of surgery/procedure, you may TAKE the following medications with a sip of water up to 2 hours prior to your arrival time: Atenolol AVOID/ DO NOT TAKE any medications the morning of surgery/procedure that are not listed above. STOP taking the following medications the noted number of days prior to surgery/procedure unless otherwise specified by your surgeon: Per otolaryngology 02/21/23 : avoid ibuprofen or aspirin products for ten days prior to surgery Please follow surgeon's instructions regarding use of Aspirin, Coumadin, Plavix, Eliquis, and any other blood thinner including NSAIDs (non-steroidal anti- inflammatory drugs, eg, Advil, Ibuprofen, Motrin, Aleve, Naproxen); if you have any questions regarding your anticoagulation therapy please contact your surgeon's clinic. Please verify any proposed stoppage of your anticoagulation therapy with the agent's prescribing provider. 10 days prior to surgery/procedure Stop all Herbal supplements, Green Tea, Turmeric, Melatonin, CBD, THC, etc. Stop all Vitamins (including Vitamin E) 24 hours prior to surgery/procedure DO NOT consume any alcohol. DO NOT use medical marijuana. DO NOT smoke or use tobacco products of any kind after midnight prior to surgery. *Using any of these products may increase your risks of procedural complications. IF IT IS LESS THAN RECOMMENDED STOPPAGE TIME PLEASE STOP AT TIME OF NOTIFICATION. FASTING RECOMMENDATIONS: To reduce risk, it is important for all elective surgery patients to follow the specific fasting guidelines listed below. If you have received more stringent guidelines, please follow the MOST RESTRICTIVE guidelines that you have been provided. DO NOT EAT after midnight on the night prior to your surgery date. You are allowed to drink clear liquids up to two hours prior to arrival time to the hospital or surgery center. Examples of clear liquids include water, clear fruit juice without pulp, clear carbonated beverages, clear tea, and black coffee. Any drinks given by your surgical service take as directed. Infant/pediatric patients who currently drink breast milk, infant formula, and non-human milk must not eat after midnight. These patients are allowed to drink only the liquids listed below up to two hours prior to arrival time to the hospital or surgery center: Ingested Material Minimum Fasting Time Clear liquid After midnight up to 2 hours prior to arrival time Breast milk Up to 4 hours prior to arrival time formula Up to 6 hours prior to arrival time Non-human milk Up to 6 hours prior to arrival time THE DAY BEFORE YOUR SURGERY: -Drink plenty of fluid the day before your surgery. Contact your surgeon's office if you develop any of the following within 2 weeks of surgery: A cold Infection Fever Shingles Chicken pox or exposure to chicken pox Open areas such as scrapes, cuts, milan or other skin conditions Rashes GENERAL INSTRUCTIONS FOR PREPARING FOR SURGERY: BATHING INSTRUCTIONS: Bathe the evening prior to and the morning of surgery/procedure. Cleanse your body using ONLY anti-bacterial soap (eg, Dial, Safeguard) or any specific soap/cleansers and instructions provided by your surgeon (eg, Chlorhexidine). -You should brush your teeth the morning of surgery. Do NOT apply any lotions, powders, sprays, creams, oils, make-up, or deodorants after bathing. No hairspray, or nail guyanese on fingers or toes. Day of surgery/procedure do not use tampons. If you wear contacts wear your eyeglasses if available otherwise bring your contact supplies with you to remove them prior to your surgery/procedure. If you wear glasses or dentures, please bring cases in which you can store them during your surgery. Please remove all piercings and jewelry and leave them at home. Wear comfortable and loose clothing. -Please leave all valuables at home. -If you use a CPAP and are staying overnight, please bring your mask and tubing with you to the hospital. -If you use an assistive mobility device (walker, cane, etc), please label it with your name and bring to hospital. -An escort pile driver operator is required if you are being discharged the same day of the surgery. You should have a responsible adult over the age of 18 [address] you home. This person should be present with youin the hospital at the time of discharge and for the first 24 hours after the surgery to support your needs. If you are taking a taxi home, you must have your responsible green party accompany you in the taxi ride home at the time of discharge. OR times subject to change. Please check voicemail messages the day/evening before your surgery forany updates. PRE-OP: You will be taken to the pre-op area where your vital signs (blood pressure, pulse and temperature)will be taken. Any preparations that need to be done will be done there. When it is time for your surgery, you will be taken to the operating room. PARENTS OF PEDIATRIC PATIENTS WILL BE ALLOWED TO STAY WITH THEIR CHILDREN UNTIL THEY ARE ESCORTED TO THE OPERATING ROOM OUTPATIENT SURGERY PATIENTS: After your surgery you will be taken to the Same Day Surgery Unit when you are awake and will go home from there. You will get instructions about your home care before you leave. Arrange to have someone drive you home from the hospital. You may not drive for 24 hours after anesthesia. You must havean adult stay with you at home for 24 hours after your operation. This is very important. If you are not able to comply with these guidelines, your Short Stay surgery cannot be done. ADMISSION PATIENTS: After your stay in the recovery area, you will be taken to your room. Your family may visit you in your room based on current visitation policy. If a next day discharge is expected, it is important to make arrangements for a pile driver operator to take you home. Please be aware our visitation policies are subject to change Professionals, attendants, caregivers or family members are allowable visitors for patients with intellectual, developmental or cognitive disabilities, communication barriers or behavioral concerns. Because patients' and families' needs vary, they will be taken into account when applying visitation restrictions. [facility]: Contact # [phone] Directions to Surgical Suite in from the [facility] Entrance The Surgical Waiting Room can be found in the Lobby of [facility]. Enter through [facility] and the Waiting Room is directly in front of you. Proceed to check in and give them your name. Directions to Surgical Suite from the East Entrance Enter the East entrance and follow the hallway to the J elevator. Take the J elevator up to Level 1. Continue down the long [facility] The [facility] Waiting Room will be on your Right. Proceed to check in and give them your Name. Directions to Surgical Suite from the Parking Garage Enter the [facility] lobby and proceed down the lux to the left. At the end of the lux, turn right. Continue down the long hallway to the main [facility]. The Surgical Waiting Room will be on your Right. Proceed to check in and give them your Name. THANK YOU FOR CHOOSING [facility] [address]! documented in this encounter OR Notes * OR Surgeon - Kevin Potter DO - 03/14/2023 8:47 AM EST OPERATIVE RECORD [place], [place] [address] Reji Palma MR # [id number] OUTPATIENT LOCATION: OR [facility] (Operating Room 18) SERVICE: Otolaryngology - Head & Neck Surgery - Facial Plastic Surgery DATE OF PROCEDURE: 03/14/2023 8:48 AM PRE-OP DIAGNOSIS: hyperparathyroidism POST-OP DIAGNOSIS: Same PROCEDURE: Parathyroid exploration SURGEON: Kevin Potter DO, FACS ASSISTANTS: Devin Singletary MD, Bev Woodruff PA-C ANESTHESIA: General endotracheal anesthesia OPERATIVE FINDINGS: see below DRAINS and/or PACKS: None ESTIMATED BLOOD LOSS: 5 ML FLUIDS: 1500mL URINE: 0mL SPECIMEN(s) OBTAINED and DISPOSITION: left inferior parathyroid for frozen section, consistent withhypercellular parathyroid. t INDICATIONS & HISTORY: hyperparathyroidism DESCRIPTION OF OPERATION: A timeout was held and the patient was identified and the procedure verified. The patient was identified as Reji Palma, and a formal time-out was held. With the patient in the supine position, general anesthesia was induced via an orally placed endotracheal tube with nerve integrity monitor leads. Bilateral lower extremity sequential compression device stockings were placed. Patient's neck was extended. The positioning of the endotracheal tube was verified after positioning with a Glidescope. Patient was prepped and draped in the usual fashion for anterior neck surgery. A peripheral preoperative blood draw was performed which reported a rapid parathyroid hormone level of 361. A low Evan incision was delineated on the neck. This was subsequently injected with 1% lidocaine with 1:100,000 epinephrine. It was then incised with a cold knife and the incision deepened using Bovie electrocautery. Superior and inferior subplatysmal flaps were then carefully elevated. The midline raphe was identified. The LEFT sternohyoid muscle was elevated and retractedlaterally. The sternothyroid muscle on the LEFT was then identified and carefully elevated off the thyroid capsule. The sternothyroid was not split as good exposure was obtained. The thyroid gland was carefully inspected and palpated. The parathyroid of interest was identified in the LEFT inferior position. This was carefully freed from the adjacent tissue and appeared consistent with a parathyroid adenoma. The mass was sent for frozen section analysis which did report a parathyroid tissue, which was noted to be hypercellular by the pathologist. A 15-minute postexcision rapid parathyroid hormone level reported a level of 73. As the IOPTH dropped more than 50% from baseline the case was stopped. The wound was irrigated. Hemostasis was assured. There was no significant bleeding during the case. Snow hemostatic agent was applied to the wound. The incision was then closed in a multilayered fashion using 3-0 Vicryl deeps, 5-0 monocryl suture for the subcuticular layer and Dermabond on the skin. A steri strip was placed. The patient was allowed to emerge from anesthesia and taken to the In and Out recovery Unit in stable condition DISPOSITION: The patient was transferred to the In & Out Surgery. APPARENT INTRAOPERATIVE COMPLICATIONS: none PATIENT CONDITION: stable ATTESTATION: I was present and scrubbed for the critical portions of the case Kevin Potter DO, [facility] Otolaryngology Head and Neck Surgery [place], [place] 03/14/2023 8:54 AM cc: Professional Reimbursement and Compliance documented in this encounter Plan of Treatment Upcoming Encounters Date Type Department Care Team (Late st Contact Info) Description 03/20/2023 7:40 AM EST Office Visit Family [address] [place] [address] Silviano Goss MD [address] [place] [address] [place] [address] 03/24/2023 11:00 AM EST Office Visit Otolaryngology [facility] [address] [facility] [place] [id number] Kevin Potter DO [address] [facility] [place] [address] Pending Results Name Type Priority Associated Diagnoses Date /Time SURGICAL PATHOLOGY Pathology Routine Hyperparathyroidism (HCC) 03/14/2023 8:34 AM EST Scheduled Orders Name Type Priority Associated Diagnoses Order Schedule GLUCOSE METER, POINT OF CARE (COMMUNICATION ORDER) Point of Care Testing STAT Perform Now for 1 Occurrences starting 03/14/2023 until 03/14/2023 SURGICAL PATHOLOGY Pathology Routine Hyperparathyroidism (HCC) Release Upon Ordering for 1 Occurrences starting 03/14/2023, 1 completed Health Maintenance Due Date Last Done Comments Hepatitis B (1 of 3 - 3-dose series) 1979 COVID-19 Vaccine (#1) 1979 Depression Screening 1991 HIV Screening 1994 Hepatitis C Screening 1997 Influenza Vaccine (FLU shot) (#1) 2022 09/22/2016 HbA1c 06/11/2023 06/10/2022, 12/24/2020 GFR 08/26/2023 08/25/2022, 04/0 09/2022, 12/24/2020, Additional history exists DTaP,Tdap,and Td [...] Not on filedocumented as of this encounter Procedures Procedure Name Priority Date/Time Associated Diagnosis Comments PTH STAT 03/14/2023 9:54 AM EST CALCIUM STAT 03/14/2023 9:54 AM EST PTH, INTRAOPERATIVE ([facility] ONLY) Routine 03/14/2023 8:50 AM EST Hyperparathyroidis m (HCC) PTH, INTRAOPERATIVE ([facility] ONLY) Routine 03/14/2023 7:55 AM EST Hyperparathyroidis m (HCC) GLUCOSE METER, POINT OF CARE RUBY 03/14/2023 6:37 AM EST documented in this encounter Results * CALCIUM (03/14/2023 9:54 AM EST) Calcium 9.3 8.4 - 10.2 mg/dL 03/14/2023 10:43 AM EST LABORATORY [facility] Blood Venous blood specimen / Unknown Venipuncture / Unknown 03/14/2023 9:54 AM EST 03/14/2023 10:08 AM EST Devin Singletary MD LAB BLOOD ORDERABLES Performing Organization Address [facility]/ZIP Co de Phone Number LABORATORY [facility] [address] [place] [address] * PTH (03/14/2023 9:54 AM EST) PTH 20 15 - 65 pg/mL 03/14/2023 12:09 PM EST LABORATORY [facility] Blood Venous blood specimen / Unknown Venipuncture / Unknown 03/14/2023 9:54 AM EST 03/14/2023 10:08 AM EST Devin Singletary MD LAB BLOOD ORDERABLES Performing Organization Address [facility] Co de Phone Number LABORATORY [facility] [address] [place] [address] * (ABNORMAL) PTH, INTRAOPERATIVE ([facility] ONLY) (03/14/2023 8:50 AM EST) PTH, Intraoperative 73(H) 10 - 65 pg/mL 03/14/2023 9:01 AM EST LABORATORY [facility] Comment:Gave result to OR 18 at 0901. Blood Venous blood specimen / Unknown 03/14/2023 8:50 AM EST 03/14/2023 8:51 AM EST Comment:Post 15 minutes Kevin Potter DO LAB BLOOD ORDERABLE S Performing Organization Address City/State/[facility] Co de Phone Number LABORATORY [facility] [address] [place] [address] * (ABNORMAL) PTH, INTRAOPERATIVE ([facility] ONLY) (03/14/2023 7:55 AM EST) PTH, Intraoperative 361(H) 10 - 65 pg/mL 03/14/2023 8:10 AM EST LABORATORY [facility] Comment:Gave results to OR 1 8 at 0809. Blood Venous blood specimen / Unknown 03/14/2023 7:55 AM EST 03/14/2023 8:00 AM EST Kevin Potter LAB BLOOD ORDERABLE S Performing Organization Address [facility] Co de Phone Number LABORATORY [facility] [address] [place] [address] * GLUCOSE METER, POINT OF CARE (03/14/2023 6:37 AM EST) Glucose Meter 107 70 - 120 mg/dL 03/14/2023 6:59 AM EST [facility] Blood Whole blood specimen / Unknown 03/14/2023 6:37 AM EST 03/14/2023 6:59 AM EST Kevin Potter LAB POINT OF CARE T EST DOCKED DEVICE UNSOLICITED RESULTS Performing Organization Address [facility] Co de Phone Number [facility] [address] [place] [address] documented in this encounter Visit Diagnoses Diagnosis Hyperparathyroidism (HCC) Hyperparathyroidism, unspecified documented in this encounter Administered Medications Inactive Administered Medications - up to 3 most recent administrations Medication Order MAR Action Action Date Dose Rate Site fentaNYL (PF) inj 50 mcg 50 mcg, IV Push, Q5 MIN PRN Pain, Moderate, Starting on Mon03/14/23 at 1020, Until Mon03/14/23 at 1704, For 4 doses, Administer up to a total of 200mcg. Administer only postop in PACU When given IV Push its recommended that the dose be given over 3 to 5 minutes., PACU Given 03/14/2023 10:24 AM EST 50 mcg HYDROmorphone (Dilaudid) inj 0.5 mg 0.5 mg, IV Push, Q15 MIN PRN Pain, Severe, Starting on Mon03/14/23 at 1020, Until Mon03/14/23 at 1704, For 2 doses, Administer only postop in PACU. Hold for respiratory rate less than 12. Administer up to a total of 1mg., PACU isolyte-S pH 7.4 infusion Intravenous, at 25 mL/hr, All Patients EXCEPT Dialysis patients Plasma-LYTE 148, isolyte-S, and isolyte-S pH 7.4 are considered equivalent - including for MAR barcode scanning., CONTINUOUS, Starting on Mon03/14/23 at 0645, Until Mon03/14/23 at 1704, Pre-Op Restarted 03/14/2023 8:29 AM EST Continue from Pre-Op 03/14/2023 7:27 AM EST 25 mL/hr New Bag 03/14/2023 6:40 AM EST 25 mL/hr 25 mL/hr lidocaine 1 % inj 1 mg 1 mg (0.1 mL), Percutaneous, ONCE PRN Other, Difficult IV starts requiring > 20 guage catheter and/ or by patient request, Starting on Mon03/14/23 at 0610, Until Mon03/14/23 at 0641, For 1 dose, Pre-Op Given 03/14/2023 6:41 AM EST 1 mg oxygen GAS Inhalation, OXYGEN, First dose on Mon03/14/23 at 1030, Until Discontinued, Device/Managed by: Low Flow Device, Goal SPO2 (%): 91-95, Starting Device: Non-Rebreather, Initial Flow Rate (LPM): 10, Lowest Support: Nasal Cannula: Flow 0-6 LPM. Titrate up/down by 1 LPM., Higher Support: Non-Rebreather (NRB) Mask: Minimum of 10 LPM. Titrate to maintain bag inflation., Titration Interval: Q2 minutes and as needed., Notify Provider: Other, Notify Provider [other]: If SpO2 less than 88% or NOT maintaining SpO2 greater than 92% notify physician immediately., NRB mask for First 15 mins in PACU After 15 mins:If SpO2 less than 88% continue non-breather and notify physician immediately. If SpO2 greater than 98% OR if patient awake and SpO2 greater than 95% - place patient on 6L O2 nasal cannula to maintain SpO2 greater than 92% Oxygen On 03/14/2023 9:41 AM EST 10 L/min(Oxygen) oxygen GAS Inhalation, OXYGEN, First dose on Mon03/14/23 at 1100, Until Discontinued, Device/Managed by: Low Flow Device, Goal SPO2 (%): Other, Lower-limit SPO2 (%): 88, Upper-limit SPO2 (%): 92, Starting Device: Mist Mask, Initial Flow Rate (LPM): 10, Lowest Support: Mist Mask/Tent/Blow-By: Oxygen 21-60%. Titrate up/down {Room Air, 28%-5 LPM, 35%-8 LPM, 40%-10 LPM, 60%-10 LPM}., Higher Support: Non-Rebreather (NRB) Mask: Minimum of 10 LPM. Titrate to maintain bag inflation., Titration Interval: Q2 minutes and as needed., Notify Provider: Other, Notify Provider [other]: If SpO2 less than 88% or NOT maintaining SpO2 greater than 92% notify physician immediately., Wean patient off Oxygen when the oxygen saturation is greater than or equal to 93% documented in this encounter Active and Recently Administered Medications Times are shown in EST. Scheduled Medication Order 03/12/2023 03/13/2023 03/14/2023 oxygen GAS Inhalation, OXYGEN, First dose on Mon03/14/23 at 1030, Until Discontinued, Device/Managed by: Low Flow Device, Goal SPO2 (%): 91-95, Starting Device: Non-Rebreather, Initial Flow Rate (LPM): 10, Lowest Support: Nasal Cannula: Flow 0-6 LPM. Titrate up/down by 1 LPM., Higher Support: Non-Rebreather (NRB) Mask: Minimum of 10 LPM. Titrate to maintain bag inflation., Titration Interval: Q2 minutes and as needed., Notify Provider: Other, Notify Provider [other]: If SpO2 less than 88% or NOT maintaining SpO2 greater than 92% notify physician immediately., NRB mask for First 15 mins in PACU After 15 mins:If SpO2 less than 88% continue non-breather and notify physician immediately. If SpO2 greater than 98% OR if patient awake and SpO2 greater than 95% - place patient on 6L O2 nasal cannula to maintain SpO2 greater than 92% 0941 (Oxygen On - Pr ovider: Dedra Mcgarry RN)0950 (Oxygen Off - Provider: Dedra Mcgarry RN) oxygen GAS Inhalation, OXYGEN, First dose on Mon03/14/23 at 1100, Until Discontinued, Device/Managed by: Low Flow Device, Goal SPO2 (%): Other, Lower-limit SPO2 (%): 88, Upper-limit SPO2 (%): 92, Starting Device: Mist Mask, Initial Flow Rate (LPM): 10, Lowest Support: Mist Mask/Tent/Blow-By: Oxygen 21-60%. Titrate up/down {Room Air, 28%-5 LPM, 35%-8 LPM, 40%-10 LPM, 60%-10 LPM}., Higher Support: Non-Rebreather (NRB) Mask: Minimum of 10 LPM. Titrate to maintain bag inflation., Titration Interval: Q2 minutes and as needed., Notify Provider: Other, Notify Provider [other]: If SpO2 less than 88% or NOT maintaining SpO2 greater than 92% notify physician immediately., Wean patient off Oxygen when the oxygen saturation is greater than or equal to 93% 1100 (Due) Continuous Medication Order 03/12/2023 03/13/2023 03/14/2023 isolyte-S pH 7.4 infusion Intravenous, at 25 mL/hr, All Patients EXCEPT Dialysis patients Plasma-LYTE 148, isolyte-S, and isolyte-S pH 7.4 are considered equivalent - including for MAR barcode scanning., CONTINUOUS, Starting on Mon03/14/23 at 0645, Until Mon03/14/23 at 1704, Pre-Op 0640 (New Bag - Prov ider: Ellen Tiwari RN)0727 (Continue from Pre-Op - Provider: Padilla Tiwari CRNA)08 (Paused - Provider: Padilla Tiwari CRNA - Comment: Switch to gravity)08 (Restarted - Provider: Padilla Tiwari CRNA)0929 (Anes Intra-Op Fluid - Provider: Padilla Tiwari CRNA) PRN Medication Order 03/12/2023 03/13/2023 03/14/2023 EPINEPHrine 4 mg in sodium chloride 0.9 % 16 mL (CANCELED) ONCE PRN INTRA PROCEDURE, Starting on Mon03/14/23 at 0813, Until Mon03/14/23 at 0936, Intra-Op 0813 (Given - Provid er: Kevin Potter, DO - Comment: procedure-related, PRN) fentaNYL (PF) inj 50 mcg 50 mcg, IV Push, Q5 MIN PRN Pain, Moderate, Starting on Mon03/14/23 at 1020, Until Mon03/14/23 at 1704, For 4 doses, Administer up to a total of 200mcg. Administer only postop in PACU When given IV Push its recommended that the dose be given over 3 to 5 minutes., PACU 1024 (Given - Provid er: Dedra Mcgarry RN) HYDROmorphone (Dilaudid) inj 0.5 mg 0.5 mg, IV Push, Q15 MIN PRN Pain, Severe, Starting on Mon03/14/23 at 1020, Until Mon03/14/23 at 1704, For 2 doses, Administer only postop in PACU. Hold for respiratory rate less than 12. Administer up to a total of 1mg., PACU lidocaine 1 % inj 1 mg (COMPLETED) 1 mg (0.1 mL), Percutaneous, ONCE PRN Other, Difficult IV starts requiring > 20 guage catheter and/ or by patient request, Starting on Mon03/14/23 at 0610, Until Mon03/14/23 at 0641, For 1 dose, Pre-Op 0641 (Given - Provid er: Ellen Tiwari RN) lidocaine-epinephrine 1 %-1:[id number] inj (CANCELED) ONCE PRN INTRA PROCEDURE, Starting on Mon03/14/23 at 0831, Until Mon03/14/23 at 0936, Intra-Op 0831 (Given - Provid er: Kevin Potter, DO - Comment: procedure-related) Oxidized Cellulose (Surgicel Snow) 4 x 4 each (CANCELED) ONCE PRN INTRA PROCEDURE, Starting on Mon03/14/23 at 0853, Until Mon03/14/23 at 0936, Intra-Op 0853 (Given - Provid er: Devin Singletary MD - Comment: procedure-related, PRN) sodium chloride IR 0.9 % irrigation (CANCELED) ONCE PRN INTRA PROCEDURE, Starting on Mon03/14/23 at 0814, Until Mon03/14/23 at 0936, Intra-Op 0814 (Given - Provid er: Kevin Potter, DO - Comment: procedure-related, PRN) documented in this encounter Care Teams Welfare Visitor Relationship Specialty Start Date End Date Silviano Goss MD [address] [place] [address] [place] [address] PCP - General Family Medicine 06/03/22 documented as of this encounter
--- OUTSIDE RECORDS SUMMARY | 2023-04-10 19:52 | External Medical Summary ---
Author Name Unknown Address Unknown Organization [id number]:[facility] [place] - [address] [place] [address] Laboratory Report Ordering Provider Test Date Status OKSANA HANNAH 03/14/2023 09:54:00 Final Observation Date Value Abnormality Reference (Units ) Status Parathyrin.intact [Mass/volume] in Serum or Plasma 03/14/2023 09:54:00 20 15-65 (pg/mL) Final Performing Location [facility] [place] - [address] [place] [address]
--- OUTSIDE RECORDS SUMMARY | 2023-04-10 19:52 | External Medical Summary ---
Author Name Unknown Address Unknown Organization K01:[facility] - [address] [place] [address] Laboratory Report Ordering Provider Test Date Status MELQUIADES KEN 03/20/2023 08:08:36 Final Observation Date Value Abnormality Reference (Units ) Status MerlinODE SPECIMEN-LAV 03/20/2023 08:08:36 Freezing of extracted DNA, whole blood and/or serum. Final Performing Location [facility] [address] [facility] [address]
--- OUTSIDE RECORDS SUMMARY | 2023-04-10 19:52 | External Medical Summary | Summary of Care ---
Author Name Unknown Organization [facility] Address [address] [facility] [place] [address] Phone [phone] Care Team Providers Care Pathology Tech Name Role Phone Silviano Goss MD Primary Care Provide r Reason for Referral * Evaluate & Treat - Unlimited Visits (Within 30 days (routine)) - Pending Review Specialty Diagnoses / Procedures Referred By Manny chow Referred To Contact Otolaryngology Diagnoses Primary hyperparathyroidism (HCC) Jimmy Dickey MD [address] [place] [address] Referral ID Status Reason Start Date Expiration Date Visits Requested Visits Authorized [id number] Pending Review Specialty Services Required 11/10/[phone] Question Answer Referral Priority Within 30 days (routine) Reason for Referral Thyroid/Parathyroid/Oral Lesions/Head/Neck/Cancer Conditions Specific Condition: Parathyroid Comments Primary hyperparathyroidism, meets criteria for surgery, 4D CT positive for left parathyroid adenoma Encounter Details Date Type Department Care Team Description 11/10/2022 Orders [facility] [address] [place] [address] [place] [phone] Jimmy Dickey MD [address] [place] [phone] Primary hyperparathyroidism (HCC)* Allergies No known active allergiesdocumented as of this encounter (statuses as of 11/10/2022) Medications Medication Sig Dispensed Refills Start Date End Date Status Losartan Potassium 50 MG Oral Tablet (Cozaar)Indications:H TN, goal below 130/80 Take 1 Tablet by mouth in the morning. 30 Tablet 5 06/03/2022 Active Atenolol 25 MG Oral Tablet (Tenormin)Indications :HTN, goal below 130/80 TAKE ONE TABLET BY MOUTH IN THE MORNING 30 Tablet 2 10/09/2022 Active documented as of this encounter (statuses as of 11/10/2022) Active Problems Problem Noted Date Prediabetes 05/16/2022 Overview: Per Prediabetes protocol Hyperparathyroidism 12/24/2020 HTN, goal below 130/80 12/24/2020 Mixed hyperlipidemia 12/24/2020 Non-recurrent unilateral inguinal hernia without obstruction or gangrene 12/24/2020 documented as of this encounter (statuses as of 11/10/2022) Immunizations Name Administration Dates Next Due TDAP (age 10 and older)(Boostrix) 02/04/2014 documented as of this encounter Social History Tobacco Use Types Packs/Day Years Used Date Smoking Tobacco: Never Smokeless Tobacco: Never Alcohol Use Standard Drinks/Week Comments Yes 0 (1 standard drink = 0.6 oz pur e alcohol) 1 beer per month Sex Assigned at Date Recorded Not on file Job Start Date Occupation Industry Not on file Not on file Not on file documented as of this encounter Plan of Treatment Upcoming Encounters Date Type Specialty Care Team Description 02/08/2023 Telemedicine Endocrinology Jimmy Dickey MD [address] [place] [address] [place] [phone] 03/20/2023 Office Visit Family Medicine Silviano Goss MD [address] [place] [address] [place] [phone] Scheduled Referrals Name Type Priority Associated Diagnoses Orde r Schedule OTOLARYNGOLOGY REFERRAL OP Referral Within 30 days (routine) Primary hyperparathyroidism (HCC) Ordered: 11/10/2022 Health Maintenance Due Date Last Done Comments Hepatitis B (1 of 3 - 3-dose series) 1979 COVID-19 Vaccine (#1) 1979 Depression Screening, Annual for Pts 12 and Over 1991 HIV Screening 1994 Hepatitis C Screening [...] this encounter Visit Diagnoses Diagnosis Primary hyperparathyroidism (HCC)- Primary Primary hyperparathyroidism documented in this encounter Care Teams Pathology Tech Relationship Specialty Start Date End Date Silviano Goss MD [address] [place] [address] [place] [address] PCP - General Family Medicine 06/03/22 documented as of this encounter
--- OUTSIDE RECORDS SUMMARY | 2023-04-10 19:52 | External Medical Summary ---
Author Name Unknown Address Unknown Organization K01:[facility] [place] - [address] [place] [address] Laboratory Report Ordering Provider Test Date Status MELQUIADES KEN 03/20/2023 08:08:36 Final Observation Date Value Abnormality Reference (Units ) Status MYCODE SPECIMEN-SST 03/20/2023 08:08:36 Freezing of extracted DNA, whole blood and/or serum. Final Performing Location [facility] - [address] [place] [address]
--- OUTSIDE RECORDS SUMMARY | 2023-04-10 19:52 | External Medical Summary | Summary of Care ---
Author Name Unknown Organization [facility] Address [address] [place] [address] Phone [phone] Care Team Providers Care Ornamental Iron Erector Name Role Phone Silviano Goss MD Primary Care Provide r Reason for Visit * Reason Comments NEW PATIENT Parathyroid * Evaluate & Treat - Unlimited Visits (Within 30 days (routine)) - Pending Review Specialty Diagnoses / Procedures Referred By Manny chow Referred To Contact Otolaryngology Diagnoses Primary hyperparathyroidism (HCC) Jimmy Dickey MD [address] [place] [address] Referral ID Status Reason Start Date Expiration Date Visits Requested Visits Authorized [id number] Pending Review Specialty Services Required 11/10/[phone] Encounter Details Date Type Department Care Team Description 11/18/2022 Office Visit Otolaryngology [facility] [address] [facility] [place] [address] Kevin Potter DO [address] [place] [address] Hyperparathyroidism (HCC)* Allergies No known active allergiesdocumented as of this encounter (statuses as of 11/18/2022) Medications Medication Sig Dispensed Refills Start Date [...] as of this encounter (statuses as of 11/18/2022) Active Problems Problem Noted Date Prediabetes 05/16/2022 Overview: Per Prediabetes protocol Hyperparathyroidism 12/24/2020 HTN, goal below 130/80 12/24/2020 Mixed hyperlipidemia 12/24/2020 Non-recurrent unilateral inguinal hernia without obstruction or gangrene 12/24/2020 documented as of this encounter (statuses as of 11/18/2022) Immunizations Name Administration Dates Next Due TDAP [...] Pressure - - Pulse - - Temperature - - Respiratory Rate - - Oxygen Saturation - - Inhaled Oxygen Concentration - - Weight 92 kg (202 lb 14.4 oz) 11/18/2022 10:01 A M EDT Height 185.4 cm (6' 1") 11/18/2022 10:01 AM EDT Body Mass Index 26.77 11/18/2022 10:01 AM EDT documented in this encounter Progress Notes * Kevin Potter, DO - 11/18/2022 10:00 AM EDT 11/18/2022 HISTORY OF PRESENT ILLNESS This 42 year old male is seen at the request of Silviano Goss MD for the initial evaluation of primary hyperparathyroidism. Patient with elevated calcium as high as 11.6. PTH elevated to 74 at the highest point. Saw endocrinology who worked him up with this parathyroid scan which was unre markable. They follow this up with a 4D CT scan which revealed a possible enlarged left superior parathyroid. Patient does have elevated 24 hour urine calcium as well. Review of the patient's lab results reveals: Lab Results Component Value Date/Time TSH - [facility] 0.67 12/24/2020 10:32 AM TSH - [facility] 0.70 12/07/1998 09:49 AM Lab Results Component Value Date/Time PTH - [facility] 65 08/25/2022 04:05 PM PTH - [facility] 74 (H) 06/10/2022 08:34 AM PTH - [facility] 57 12/24/2020 10:32 AM Lab Results Component Value Date/Time CALCIUM - [facility] 10.3 (H) 08/25/2022 04:05 PM CALCIUM - [facility] 10.6 (H) 06/10/2022 08:34 AM CALCIUM - [facility] 11.6 (H) 12/24/2020 10:32 AM CALCIUM, 24 HOUR URINE - [facility] 0.44 (H) 09/02/2022 04:23 PM CALCIUM, 24 UR - [facility] 18.5 09/02/2022 04:23 PM CATECHOLAMINES 390.6 12/14/1998 11:02 AM Problem List Patient Active Problem List Diagnosis Code Hyperparathyroidism (HCC) E21.3 HTN, goal below 130/80 I10 Mixed hyperlipidemia E78.2 Non-recurrent unilateral inguinal hernia without obstruction or gangrene K40.90 Prediabetes R73.03 Past Medical History: Diagnosis Date COVID-19 02/24/2021 admitted HTN, goal below 130/80 Past Surgical History: Procedure Laterality Date NONE PROCEDURE - GENERAL Right 01/25/2021 Inguinal hernia Medications Current Outpatient Medications Medication Sig Dispense Refill Losartan Potassium 50 MG Oral Tablet (Cozaar) Take 1 Tablet by mouth in the morning. 30 Tablet 5 Atenolol 25 MG Oral Tablet (Tenormin) TAKE ONE TABLET BY MOUTH IN THE MORNING 30 Tablet 2 No current facility-administered medications for this visit. Allergies Review of patient's allergies indicates: No Known Allergies Family History No family history on file. Social History Social History Tobacco Use Smoking status: Never Smokeless tobacco: Never Substance Use Topics Alcohol use: Yes Comment: 1 beer per month Vaping/E-Cigarette Use Vaping/E-Cigarette Substances Vaping/E-Cigarette Devices Review of Systems Negative for constitutional, eyes, cardiac, pulmonary, hepatic, renal, digestive, hematologic, epileptic, syncopal, musculo-skeletal, mental health, integumentary, hypertensive, lipid, arthritic, diabetic, thyroid, or neurologic disorders (except as listed in the PMH and Problem List). Physical Examination: There were no vitals taken for this visit. PHYSICAL EXAM General: This is a healthy appearing male who appears his stated age. The patient is alert and appropriately verbally conversant without hoarseness. Face: The face was inspected and no cutaneous masses or lesions were visualized. There was no erythema or edema noted. Facial movement was symmetric without weakness. No skin lesions were detected. There was no sinus tenderness elicited. The parotid and submandibular glands were normal to palpation. Eyes: Extra-ocular muscle function was intact. No nystagmus was observed. Pupils were equal. Cranial Nerves: Cranial nerves II, III, IV, and were noted to be intact via extra-ocular muscle movement testing. Cranial nerve VII noted to be intact and symmetric by facial movement. Nose: Examination of the nose revealed no masses, polyps, mucopus, or other lesion. The nasal septum was non-obstructing. The turbinates were without abnormality. Oral Cavity: Examination of the oral cavity revealed no mass lesions nor infection. The palate was noted to be intact without evidence of clefting. The tongue exhibited normal mobility. Mucosa was moist without lesion. The lips were free of lesion. Gums were free of inflammation. Dentition: Unremarkable Oropharynx: The oral pharynx was free of mass lesion or mucosal abnormality. The palate was noted to be without lesion. The uvula was normal appearing. The tonsils were unremarkable. Hypopharynx: see scope Larynx: see scope Ears: Examination of the ears revealed that the auricles were normally formed with no lesions. The external auditory canals were cleaned of any obstructing cerumen. The tympanic membranes were intactand freely mobile to pneumatoscopy. There are no significant retraction pockets. There is no inflammation visualized. No effusions are seen. Neck: Visualization and palpation of the neck revealed no mass lesions, no thyromegaly or thyroid masses. No skin lesions or inflammatory processes were detected. The cervical musculature was normal to palpation. Lymphatics (cervical): There were no palpable lymph nodes in the posterior triangle, submandibular triangle, jugulodigastric region, or central neck. Lungs: Breathing quietly. No use of accessory muscles. Heart: Regular rate. No JVD. Procedure: Due to patient's inability to cooperate with mirror exam or concern for structures otherwise not evaluated, fiberoptic examination of the larynx was performed. The nose was first topically decongested with topical oxymetazoline 0.05% spray and topically anesthetized with topical Lidocaine 4% spray. Nasopharynx was visualized and was without masses or lesions. Fiberoptic examination revealed no mass lesions. Vocal cord mobility was normal without paralysis or paresis. There was no significant edema or erythema of the larynx. No vocal cord masses were visualized. Exam was negative for post cricoid or pyriform sinuses lesions. The patient tolerated the procedure well. Patient should refrain from eating or drinking for 30-45 minutes due to anesthesia of the pharynx and possible interference with swallowing. ASSESSMENT: Primary Hyperparathyroidism PLAN: We discussed that parathyroid exploration is warranted at this time (scan directed). We discussed the procedure extensively with him including risk of postoperative hypocalcemia, recurrent laryngeal nerve palsy, general anesthesia, bleeding, infection, and scarring of an excessive nature. He verbalized understanding of the procedure and gave informed consent. Surgery was scheduled for 03/14/2023 He was consulted to avoid ibuprofen or aspirin products for ten days prior to surgery. He will be called the night before surgery for a time to arrive. Will need fiberoptic laryngoscopy at pre-op visit in February I spent a total of 45 minutes on the date of service in preparation, delivery, and documentation ofthe care provided to the above patient, excluding any time spent on the performance of any procedures or separately billable services. Kevin Potter DO, [facility] Otolaryngology Head and Neck Surgery [place] 11/18/2022 10:57 AM documented in this encounter Nursing Notes * Rowan Maravilla LPN - 11/18/2022 10:01 AM EDT Chief Complaint Patient presents with NEW PATIENT Parathyroid Patient presents today to discuss surgery for parathyroid adenoma. States he was suppose to have itdone 4 years ago but never followed through. He denies any concerns today. CT NECK 11/03/22 IMPRESSION: 8 mm left superior parathyroid gland lesion representing a parathyroid adenoma or the largest of multigland hyperplasia. documented in this encounter Plan of Treatment Upcoming Encounters Date Type Specialty Care Team Description 02/08/2023 Telemedicine Endocrinology Jimmy Dickey MD [address] [place] [address] [place] [address] 02/21/2023 Office Visit Otolaryngology Kevin Potter DO [address] [place] [phone] 03/20/2023 Office Visit Family Medicine Silviano Goss MD [address] [place] [address] [place] [address] Scheduled Referrals Name Type Priority Associated Diagnoses [...] HbA1c 06/11/2023 06/10/2022, 12/24/2020 GFR 08/26/2023 08/25/2022, 0409/2022, 12/24/2020, Additional history exists DTaP,Tdap,and Td Vaccines [...] unspecified documented in this encounter Care Teams Ornamental Iron Erector Relationship Specialty Start Date End Date Silviano Goss MD [address] [place] [address] [place] [phone] PCP - General Family Medicine 06/03/22 documented as of this encounter
--- OUTSIDE RECORDS SUMMARY | 2023-04-10 19:52 | External Medical Summary ---
Author Name Unknown Address Unknown Organization [id number]:LABORATORY [facility] [place] - [address] [facility] [id number] Laboratory Report Ordering Provider Test Date Status MAY CONTRERAS 03/20/2023 08:08:36 Final Observation Date Value Abnormality Reference (Units ) Status BUN 03/20/2023 08:08:36 12 6-20 (mg/dL) Final Creatinine 03/20/2023 08:08:36 1.0 0.6-1.2 (mg/dL) Final Glomerular filtration rate/1.73 sq M.predicted [Volume Rate/Area] in Serum, Plasma or Blood by Creatinine-based formula (CKD-EPI) 03/20/2023 08:08:36 >90 >=60 (mL/min) Final eGFR is calculated based on the CKD-EPI 2020 equation SODIUM 03/20/2023 08:08:36 136 135-146 (m mol/L) Final Potassium 03/20/2023 08:08:36 4.2 3.5-5.1 (m mol/L) Final Cl 03/20/2023 08:08:36 99 98-107 (mm ol/L) Final CO2 03/20/2023 08:08:36 25 22-32 (mmo l/L) Final Anion gap 03/20/2023 08:08:36 12 7-15 (mmol /L) Final Glucose 03/20/2023 08:08:36 108 70-120 (mg /dL) Final Albumin 03/20/2023 08:08:36 4.7 3.8-5.0 (g /dL) Final AST (Aspartate aminotransferase) 03/20/2023 08:08:36 11 10-50 (U/L) Final Alk Phos 03/20/2023 08:08:36 96 35-130 (U/ L) Final Bilirubin, Total 03/20/2023 08:08:36 0.4 <=1 .2 (mg/dL) Final Calcium 03/20/2023 08:08:36 9.8 8.4-10.2 ( mg/dL) Final Protein 03/20/2023 08:08:36 7.4 6.0-8.3 (g /dL) Final ALT (Alanine aminotransferase) 03/20/2023 08:08:36 18 10-50 (U/L) Final Performing Location LABORATORY [facility] [place] - [address] [facility] [id number]
--- OUTSIDE RECORDS SUMMARY | 2023-04-10 19:52 | External Medical Summary | Summary of Care ---
Author Name Unknown Organization [facility] Address [address] [place] [address] Phone [phone] Care Team Providers Care Clinical Nurse Educator Name Role Phone Silviano Goss MD Primary Care Provide r Reason for Referral * Precert (Within 10 days (routine)) - Pending Review Specialty Diagnoses / Procedures Referred By Contac t Referred To Contact Radiology Diagnoses Primary hyperparathyroidism (HCC) Procedures CT NECK W WO CONTRAST Jimmy Dickey MD [address] [place] [address] [place] [id number] Referral ID Status Reason Start Date Expiration Date V isits Requested Visits Authorized [id number] Pending Review 10/20/[phone] Encounter Details Date Type Department Care Team Description 10/20/2022 Orders Only Endocrinology [facility] Lorin Farris [address] [place] [address] [place] [id number] Jimmy Dickey MD [address] [place] [address] [place] [id number] Primary hyperparathyroidism (HCC)* Allergies No known active allergiesdocumented as of this encounter (statuses as of 10/20/2022) Medications Medication Sig Dispensed Refills Start Date [...] as of this encounter (statuses as of 10/20/2022) Active Problems Problem Noted Date Prediabetes 05/16/2022 Overview: Per Prediabetes protocol Hyperparathyroidism 12/24/2020 HTN, goal below 130/80 12/24/2020 Mixed hyperlipidemia 12/24/2020 Non-recurrent unilateral inguinal hernia without obstruction or gangrene 12/24/2020 documented as of this encounter (statuses as of 10/20/2022) Immunizations Name Administration Dates Next Due TDAP [...] Description 02/08/2023 Telemedicine Endocrinology Jimmy Dickey MD [address] [place] [address] [place] [phone] 03/20/2023 Office Visit Family Medicine Silviano Goss MD [address] [place] [address] [place] [phone] Scheduled Orders Name Type Priority Associated Diagnoses Orde r Schedule CT NECK W WO CONTRAST Medical Imaging Routine Primary hyperparathyroidism (HCC) Expected: 10/20/2022, Expires: 11/21/2023 COMPREHENSIVE METABOLIC PANEL Lab Routine Primary hyperparathyroidism (HCC) Expected: 10/20/2022 (Approximate), Expires: 10/21/2023 Health Maintenance Due Date Last Done Comments [...] hyperparathyroidism documented in this encounter Care Teams Clinical Nurse Educator Relationship Specialty Start Date End Date Silviano Goss MD [address] [place] [address] [place] [id number] PCP - General Family Medicine 06/03/22 documented as of this encounter
--- OUTSIDE RECORDS SUMMARY | 2023-04-10 19:52 | External Medical Summary | Summary of Care ---
Author Name Unknown Organization [facility] Address [address] [place] [address] Phone [phone] Care Team Providers Care Nursery Supervisor Name Role Phone Silviano Goss MD Primary Care Provide r Reason for Visit * Reason Comments eRx-Medication Refill Encounter Details Date Type Department Care Team (Late st Contact Info) Description 02/08/2023 Refill Family Medicine [address] [phone] Silviano Goss MD [address] [place] [address] [place] [address] HTN, goal below 130/80 Allergies No known active allergiesdocumented as of this encounter (statuses as of 02/09/2023) Medications Medication Sig Dispensed Refills Start Date End Date Status Losartan Potassium 50 MG Oral Tablet (Cozaar)Indicatio ns:HTN, goal below 130/80 TAKE ONE TABLET BY MOUTH IN THE MORNING 30 Tablet 8 12/05/2022 Active Atenolol 25 MG Oral Tablet (Tenormin)Indicat ions:HTN, goal below 130/80 TAKE ONE TABLET BY MOUTH EVERY MORNING 30 Tablet 5 02/09/2023 Active Atenolol 25 MG Oral Tablet (Tenormin)Indicat ions:HTN, goal below 130/80 TAKE ONE TABLET BY MOUTH IN THE MORNING 30 Tablet 2 10/09/2022 02/09/2023 Discontinued documented as of this encounter (statuses as of 02/09/2023) Active Problems Problem Noted Date Diagnosed Date Prediabetes 05/16/2022 Overview: Per Prediabetes protocol Hyperparathyroidism 12/24/2020 HTN, goal below 130/80 12/24/2020 Mixed hyperlipidemia 12/24/2020 Non-recurrent unilateral ing uinal hernia without obstruction or gangrene 12/24/2020 documented as of this encounter (statuses as of 02/09/2023) Immunizations Name Administration Dates Next Due TDAP [...] on file documented as of this encounter Miscellaneous Notes * Telephone Encounter - Alely Benedict [facility] - 02/09/2023 8:36 AM ESTSigned Prescriptions: Disp Refills Atenolol 25 MG Oral Tablet (Tenormin) 30 Tab*5 Sig: TAKE ONE TABLET BY MOUTH EVERY MORNINGAuthorizing Provider: Saida GOSS User: ALLEY BENEDICT documented in this encounter Plan of Treatment Upcoming Encounters Date Type Department Care Team (Latest Contact Info) Description 02/21/2023 3:00 PM EST Office Visit Otolaryngology [facility] [address] [place] [address] Kevin Potter DO [address] [place] [phone] 03/14/2023 8:52 AM EST Hospital Encounter [place] [facility] [facility] [place] [address] [facility] [place] [address] Kevin Potter, DO [address] [place] [phone] 03/14/2023 8:52 AM EST - 03/14/2023 11:30 AM EST Surgery [place] [facility] [place] [facility] [facility] [place] [address] [facility] [place], [place] [address] Kevin Potter, [address] [place] [phone] PARATHYROIDECTOMY 03/20/2023 4:20 PM EST Office Visit Family [address] [place] [phone] Silviano Goss MD [address] [place] [address] [place] [phone] Scheduled Procedures Name Priority Associated Diagnoses Date/Ti me PARATHYROIDECTOMY Hyperparathyroidism (HCC) 03/14/2023 8:52 AM EST Health Maintenance Due Date Last [...] encounter Visit Diagnoses Diagnosis HTN, goal below 130/80 Unspecified essential hypertension Hyperparathyroidism (HCC) Hyperparathyroidism, unspecified documented in this encounter Care Teams Nursery Supervisor Relationship Specialty Start Date End Date Silviano Goss MD [address] [place] [address] [place] [phone] PCP - General Family Medicine 06/03/22 documented as of this encounter
--- OUTSIDE RECORDS SUMMARY | 2023-04-10 19:52 | External Medical Summary ---
Author Name Unknown Address Unknown Organization : Laboratory Report Ordering Provider Test Date Status DELIA HENRY 03/14/2023 06:37:14 Final Observation Date Value Abnormality Reference (Units ) Status Glucose Point of Care 03/14/2023 06:37:14 107 70-120 (mg/dL) Final Performing Location
--- OUTSIDE RECORDS SUMMARY | 2023-04-10 19:52 | External Medical Summary ---
Author Name Unknown Address Unknown Organization K01:LAB[facility]ATORY [facility] - [address] [place] [address] Laboratory Report Ordering Provider Test Date Status OKSANA HANNAH 03/14/2023 09:54:00 Final Observation Date Value Abnormality Reference (Units ) Status Calcium 03/14/2023 09:54:00 9.3 8.4-10.2 ( mg/dL) Final Performing Location LABORATORY [facility] - [address] [place] [address]
--- OUTSIDE RECORDS SUMMARY | 2023-04-10 19:52 | External Medical Summary | Summary of Care ---
Author Name Unknown Organization [facility] Address [address] [place] [facility] [address] Phone [phone] Care Team Providers Care E Mail System Administrator Name Role Phone Silviano Goss MD Primary Care Provide r Reason for Visit * Reason Comments Follow Up Encounter Details Date Type Department Care Team (Latest Contact Info) Description 02/21/2023 3:00 PM EST Office Visit Otolaryngology [facility] [address] [place] [address] Kevin Potter DO [address] [place] [phone] Hyperparathyroidism (HCC)* Allergies No known active allergiesdocumented as of this encounter (statuses as of 02/21/2023) Medications Medication Sig Dispensed Refills Start Date End Date Status Losartan Potassium 50 MG Oral Tablet (Cozaar)Indications:H TN, goal below 130/80 TAKE ONE TABLET BY MOUTH IN THE MORNING 30 Tablet 8 12/05/2022 Active Atenolol 25 MG Oral Tablet (Tenormin)Indications :HTN, goal below 130/80 TAKE ONE TABLET BY MOUTH EVERY MORNING 30 Tablet 5 02/09/2023 Active documented as of this encounter (statuses as of 02/21/2023) Active Problems Problem Noted Date Diagnosed Date Prediabetes 05/16/2022 Overview: Per Prediabetes protocol Hyperparathyroidism 12/24/2020 HTN, goal below 130/80 12/24/2020 Mixed hyperlipidemia 12/24/2020 Non-recurrent unilateral ing uinal hernia without obstruction or gangrene 12/24/2020 documented as of this encounter (statuses as of 02/21/2023) Immunizations Name Administration Dates Next Due TDAP [...] on file documented as of this encounter Progress Notes * Kevin Potter, - 02/21/2023 3:00 PM EST Otolaryngology Head and Neck Surgery 02/21/2023 Patient returns today for preop. He is scheduled for parathyroid exploration on March 14, 2023. 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 Problem List Patient Active Problem List Diagnosis [...] MOUTH IN THE MORNING 30 Tablet 8 Atenolol 25 MG Oral Tablet (Tenormin) TAKE ONE TABLET BY MOUTH EVERY MORNING 30 Tablet 5 No current facility-administered medications for this visit. [...] alert and appropriately verbally conversant without hoarseness. Neck: Visualization and palpation of the neck [...] gave informed consent. Surgery was scheduled for 03/14/23 He was consulted to avoid ibuprofen or aspirin products for ten days prior to surgery. He will be called the night before surgery for a time to arrive. Kevin Potter DO, MARGARITO [facility] Otolaryngology Head and Neck Surgery [place] 02/21/2023 1:54 PM documented in this encounter Nursing Notes * Johanne Louis LPN - 02/21/2023 2:59 PM EST Patient presents today for pre op surgery for [facility] 03/14/2023. documented in this encounter Plan of Treatment Upcoming Encounters Date Type Department Care Team (Latest Contact Info) Description 03/14/2023 8:52 AM EST Hospital Encounter OR [facility] [place] OPERATING ROOM [facility] [place] [address] [place] [address] Kevin Potter DO [address] [place] [address] 03/14/2023 8:52 AM EST - 03/14/2023 11:30 AM EST Surgery OR [facility] [place], OPERATING ROOM [facility] [address] [facility] [place] [address] Kevin Potter DO [address] [place] [phone] PARATHYROIDECTOMY 03/20/2023 7:40 AM EST Office Visit Family [address] [place] [phone] Silviano Goss MD [address] [place] [address] [place] [phone] Scheduled Procedures Name Priority Associated Diagnoses Date/Ti [...] Diagnoses Diagnosis Hyperparathyroidism (HCC)- Primary Hyperparathyroidism, unspecified Hyperparathyroidism (HCC) Hyperparathyroidism, unspecified documented in this encounter Care Teams E Mail System Administrator Relationship Specialty Start Date End Date Silviano Goss MD [address] [place] [address] [place] [phone] PCP - General Family Medicine 06/03/22 documented as of this encounter
[2023-04-11 07:06] LABS: Hemoglobin 13.5 g/dl (14.0-18.0); Mean Corpuscular Hemoglobin 29.4 pg (25.0-34.0); Mean Corpuscular Hgb Conc 32.1 g/dL (32.0-36.0); Mean Corpuscular Volume 91.5 fL (80.0-100.0); Mean Platelet Volume 9.4 fL (9.4-12.4); Platelet Count 249 K/uL (130-400); RDW Coefficient of Variation 12.9 % (11.5-14.5); RDW Standard Deviation 43.1 fL (36.4-46.3); Red Blood Count 4.59 M/uL (4.70-6.10); White Blood Count 5.58 K/ul (4.8-10.8)
[2023-04-11 07:28] LABS: BUN Creatinine Ratio 11.3 (10-20); Calcium 8.3 mg/dl (8.6-10.3); Est GFR (African American) 109.6 ml/min; Est GFR (Non-African American) 94.6 ml/min; Potassium 4.2 mmol/L (3.5-5.1)
[2023-04-11 07:47] LABS: Estimated Average Glucose 123 mg/dl; Hemoglobin A1C 5.9 % (4.5-5.6)
[2023-04-11] MEDS: ATENOLOL 50 MG TABLET PO SCH (09:05)
[2023-04-11] MEDS: LOSARTAN POTASSIUM 50 MG TAB PO SCH (09:06)
--- NOTE | 2023-04-11 09:15 | Surgery Progress Note ---
<Statement entered by Baudilio Kirkpatrick DO - 04/11/23 20:54> I have seen and examined this patient with the surgical PA. I agree with this plan. Date of Service April 11, 2023 Assessment & Plan (1) SBO (small bowel obstruction): Plan: Pt here with abdominal pain and CT scan with findings concerning for SBO WBC 5, vitals this AM are stable Pt reports improvement in pain overnight. No n/v Did have multiple loose BMs overnight, will recommend sending off stool studies for evaluation Okay for clears today and see how he fairs. pending progress possible home tomorrow also may f/u with us as an outpatient to consider elective umbilical hernia repair in the future should he wish to pursue this Admission and Anticipated Discharge Date Admission Date: April 10, 2023 Subjective Patient reports feeling 90% better than admission. abdominal pain improved. is passing flatus, also had ~10 watery stools overnight. no nausea/vomiting Physical Exam Physical Exam: awake/alert, no distress Gastrointestinal (Abdomen): Inspection/Auscultation: abdomen not distended Percussion/Palpation: + abdomen tender (some discomfort around umbilical region), abdomen soft and + hernia (+ fat containing umbilical hernia, no skin changes) no recurrence of inguinal hernia Results & Data Vital Signs (Past 12 Hours) Vital Signs Temp Pulse Pulse Resp BP Pulse Ox O2 Del Method 04/11/23 07:29 36.7 C 91 H 18 129/73 96 Room Air 04/11/23 03:41 36.8 C 88 18 137/82 97 Room Air 04/10/23 23:53 99 H 04/10/23 23:43 36.8 C 92 H 18 123/77 95 Room Air 04/10/23 21:33 88 PG Care Time/CCT Total # of Minutes Spent Total Time Spent with Patient: Total time spent is greater than 50% in coordination of care (as documented) at patient's floor/unit and/or counseling patient: Coding Level of Care Code 58169 SUB INP/OBS CARE 125MIN Diagnoses SBO (small bowel obstruction) K56.609
[2023-04-11 11:44] LABS: Adenovirus F 40/41 PCR Not Detected (NotDetected); Astrovirus PCR Not Detected (NotDetected); Campylobacter PCR Not Detected (NotDetected); Cryptosporidium PCR Not Detected (NotDetected); Cyclospora cayetanensis PCR Not Detected (NotDetected); Entamoeba histolytica PCR Not Detected (NotDetected); Enteroaggregative E.coli(EAEC) Not Detected (NotDetected); Enteropathogenic E.coli (EPEC) Not Detected (NotDetected); Enterotoxigenic E.coli (ETEC) Not Detected (NotDetected); Giardia lamblia PCR Not Detected (NotDetected); Norovirus GI/GII PCR Not Detected (NotDetected); Plesiomonas shigelloides PCR Not Detected (NotDetected); Rotavirus A PCR Not Detected (NotDetected); Salmonella PCR Not Detected (NotDetected); Sapovirus PCR Not Detected (NotDetected); Shiga-like Toxin E.coli (STEC) Not Detected (NotDetected); Shigella/Enteroinvasive E.coli Not Detected (NotDetected); Vibrio cholerae PCR Not Detected (NotDetected); Vibrio species PCR Not Detected (NotDetected); Yersinia enterocolitica PCR Not Detected (NotDetected)
--- NOTE | 2023-04-11 14:48 | Hospitalist Progress Note ---
Date of Service April 11, 2023 Assessment & Plan (1) SBO (small bowel obstruction): Plan: Patient is a 43-year-old male with PMH HTN, HLD, prediabetes, hyperparathyroidism, s/p parathyroidectomy presented to ER with complaint of abdominal pain x 3 days. In ER afebrile. No leukoyctosis. CT abd/pelvis: Small bowel obstruction with the transition point within the right lower quadrant at the distal jejunal loops. Trace pelvic free fluid. This is likely reactive. Left-sided nephrolithiasis. No hydronephrosis. Patient is having regular bowel movements. Started on clear liquid diet; advance as tolerated Stop IV fluids Appreciate surgery's input. (2) HTN (hypertension): Plan: Continue atenolol, losartan as able (3) HLD (hyperlipidemia): Plan: Not on home medications (4) Prediabetes: Plan: A1c: 5.8 on 06/10/2022 Random glucose 107 Monitor BSG on a.m. labs (5) Hyperparathyroidism: Plan: S/P left inferior parathyroidectomy on 03/14/2023 DVT Prophylaxis SCDs Full Code as per discussion with pt Please note the above document was generated using voice recognition software. It may contain grammatical, syntax or spelling errors. Any formal questions or concerns about the content, text or information contained within the body of this dictation should be directly addressed to the provider for clarification Admission and Anticipated Discharge Date Admission Date: April 10, 2023 Subjective Patient seen and examined at bedside. He is having multiple bowel movements. No other complaints. Review of Systems Review of Systems: All systems reviewed & are unremarkable except as noted in Subjective Physical Exam Physical Exam: Constitutional: WD/WN, vitals as above, NAD, sitting up in bed, pleasant, conversing easily Respiratory: Bilateral vesicular breath sound. Cardiovascular: RRR, no murmur, no edema Vessels: no JVD or carotid bruit Chest: normal inspection of chest Abdomen: normal bowel sounds, soft, nontender, no hepatosplenomegaly Musculoskeletal: no cyanosis or clubbing, extremities motor strength 5/5 Skin: no rashes, warm and dry normal turgor Neurologic: PERRL, EOMI, accommodation nl, no face palsy, no dysarthria CN's II- XI intact bilaterally and moves all extremities Psychiatric: A+Ox3, euthymic affect Results & Data Results & Data Vital Signs (Past 12 Hours) Vital Signs Temp Pulse Pulse Resp BP Pulse Ox O2 Del Method 04/11/23 10:40 37 C 85 20 115/74 96 Room Air 04/11/23 07:29 36.7 C 91 H 18 129/73 96 Room Air 04/11/23 05:56 85 04/11/23 03:41 36.8 C 88 18 137/82 97 Room Air
[2023-04-12 05:36] LABS: Basophils # (auto) 0.01 K/uL (0.00-0.20); Basophils % (auto) 0.2 %; Eosinophils # (auto) 0.11 K/uL (0.00-0.50); Eosinophils % (auto) 1.9 %; Hemoglobin 12.9 g/dl (14.0-18.0); Immature Granulocytes # (auto) 0.03 K/uL (0.01-0.20); Immature Granulocytes % (auto) 0.5 %; Lymphocytes # (auto) 1.47 K/uL (1.20-3.40); Lymphocytes % (auto) 25.5 %; Mean Corpuscular Hemoglobin 29.7 pg (25.0-34.0); Mean Corpuscular Hgb Conc 32.3 g/dL (32.0-36.0); Monocytes # (auto) 0.75 K/uL (0.11-0.59); Neutrophils % (auto) 58.9 %; Platelet Count 227 K/uL (130-400); RDW Coefficient of Variation 12.7 % (11.5-14.5); RDW Standard Deviation 42.5 fL (36.4-46.3); Red Blood Count 4.35 M/uL (4.70-6.10); White Blood Count 5.77 K/ul (4.8-10.8)
[2023-04-12 05:53] LABS: BUN Creatinine Ratio 7.8 (10-20); Calcium 8.4 mg/dl (8.6-10.3); Creatinine Clr Calc Pharmacy 106.4 ml/min; Est GFR (African American) 101.9 ml/min; Est GFR (Non-African American) 87.9 ml/min; Potassium 3.8 mmol/L (3.5-5.1)
[2023-04-12 08:02] VITALS: RESP 18; TEMP 97.5; O2SAT 99
[2023-04-12 11:27] VITALS: BP 130/84; PULSE 76
--- NOTE | 2023-04-12 12:38 | Discharge Summary ---
Date of Service April 12, 2023 Admission HPI Per Admitting Provider Patient is a 43-year-old male with PMH HTN, HLD, prediabetes, hyperparathyroidism, s/p parathyroidectomy presented to ER with complaint of abdominal pain x 3 days. Patient states 3 days ago started with some nausea and upper abdominal aching. Following day with worsening nausea and several episodes of vomiting yellow color emesis. Reports worsening abdominal discomfort. Reports diffuse abdominal aching, bloating and noted abdominal distention. Has tried Tums and Pepcid without relief. Decreased appetite. Patient states has ate granola bar and a couple of crackers early today. Today has BM that were less than normal amount. Reports did take his BP meds today at noon. Denies any vomiting today. Has had some dry heaves. Denies history of SBO in past. History right inguinal hernia repair. Denies fever/chills, diaphoresis, MCKEON, dizziness, syncope, vision changes, neck pain, CP, SOB, palpitations, cough, sore throat, rhinorrhea, paresthesias, weakness, extremity edema, rashes, urinary symptoms. Admission Exam Per Admitting Provider General: no distress, WDWN Head: normocephalic, atraumatic Eyes: conjunctiva non-injected, anicteric ENT: normal inspection external ears, nose, mucous membranes moist Neck: supple, trachea midline Lungs: clear, no respiratory distress, no wheezing/rhonchi/rales CV: RRR, no murmur, no pretibial edema Abd: diminished BS, +distended and taught abdomen, +mild diffuse tenderness to palpation Ext: no cyanosis, no calf tenderness Neuro: A&O x 3, no focal deficits noted, normal affect Skin: warm, dry Principal Diagnosis Small bowel obstruction Discharge Exam Constitutional: WD/WN, vitals as above, NAD, sitting up in bed, pleasant, conversing easily Respiratory: Bilateral vesicular breath sound. Cardiovascular: RRR, no murmur, no edema Vessels: no JVD or carotid bruit Chest: normal inspection of chest Abdomen: normal bowel sounds, soft, nontender, no hepatosplenomegaly Musculoskeletal: no cyanosis or clubbing, extremities motor strength 5/5 Skin: no rashes, warm and dry normal turgor Neurologic: PERRL, EOMI, accommodation nl, no face palsy, no dysarthria CN's II- XI intact bilaterally and moves all extremities Psychiatric: A+Ox3, euthymic affect Discharge Data Allergies Allergy/AdvReac Type Severity Reaction Status Date / Time No Known Allergies Allergy Verified 04/10/23 15:53 Consultations 04/10/23 15:54 Consult General Surgery Stat ED Decision to Admit Stat 04/10/23 17:01 Consult General Surgery Routine Ordered Studies 04/10/23 14:14 CT abd pelvis IV con only Stat Hospital Course (1) SBO (small bowel obstruction): Per prior attending with addendum: Patient is a 43-year-old male with PMH HTN, HLD, prediabetes, hyperparathyroidism, s/p parathyroidectomy presented to ER with complaint of a bdominal pain x 3 days. In ER afebrile. No leukoyctosis. CT abd/pelvis: Small bowel obstruction with the transition point within the right lower quadrant at the distal jejunal loops. Trace pelvic free fluid. This is likely reactive. Left-sided nephrolithiasis. No hydronephrosis. Patient is having regular bowel movements. Started on clear liquid diet; advance as tolerated Stop IV fluids Appreciate surgery's input. (2) HTN (hypertension): Continue atenolol, losartan as able (3) HLD (hyperlipidemia): Not on home medications (4) Prediabetes: A1c: 5.8 on 06/10/2022 Random glucose 107 Monitor BSG on a.m. labs (5) Hyperparathyroidism: S/P left inferior parathyroidectomy on 03/14/2023 DVT Prophylaxis SCDs Full Code as per discussion with pt Please note the above document was generated using voice recognition software. It may contain grammatical, syntax or spelling errors. Any formal questions or concerns about the content, text or information contained within the body of this dictation should be directly addressed to the provider for clarification Plan Addendum 04/12/2023: Patient was seen and examined at bedside as a follow-up of a small bowel obstruction. Patient has been advanced to low fiber diet, has been moving bowels, has been moving gas, reports improvement in his belly pain, denies nausea and vomiting, reports feeling better, is hemodynamically stable, would like to go home. Discussed with surgery, he is okay to be discharged from the point of view. He is being discharged with following instruction at the point of discharge: Follow-up with your primary care physician within a week time and likely you will need labs CBC/CMP/magnesium/phosphorus. Continue with low fiber diet for next several days, over 7 to 10 days, you can transition back to your regular consistency diet if ongoing improvement. If worsening abdominal pain, report to emergency immediately. While in the hospital, your A1c was found to be 5.9. This means you have prediabetes. Encourage lifestyle modification including healthy diet and daily exercise regimen. You will need repeat A1c in 3 months. Coordinate with your PCP office for ongoing management and monitoring. Can follow-up with surgery as an outpatient to consider elective umbilical hernia repair in 1 to 2 months time. Take your medications as prescribed. Please make sure that you are able to get your medications today by calling your pharmacy before you leave the hospital so that your treatment continuity is not broken. Home Health Attestation I certify that this patient is under my care and that I, or a physicians leasing assistant working with me, had a face to-face encounter that meets the home health [id number] encounter requirements with this patient. The encounter with the patient was in whole, or in part, for the following medical condition, which is the primary reason for home health care (list medical condition): I certify that, based on my findings, the following services are medically necessary home health services: My clinical findings support the need for the above services because: Further, I certify that my clinical findings support that this patient is homebound (i.e. absences from home require considerable and taxing effort and are for medical reasons or church services or infrequently or of short duration when for other reasons) because: Certification for Home Health Services: Based on the above findings, I certify that this patient is confined to the home and needs intermittent retirement care, physical therapy and/or speech therapy or continues to need occupational therapy. The patient is under my care, and I have initiated the establishment of the plan of care. This patient will be followed by a physician who will periodically review the plan of care. Total Time Total Time Spent Total Time Spent (In Minutes): 45 Discharge Plan Discharge Items Patient Disposition: Home - Self-Care Reason For Visit: SBO Discharge Diagnosis: Small bowel obstruction Activity: Resume your previous activity Non-emergency contact: Primary Care Provider Call non-emergency contact if: you have any medication questions, your symptoms worsen and your temperature is above 101.5 Follow-up/Referrals: Zaman-Fabiano,Kennita L., DO [Physician] - (you may call the office if you would like to be evaluated for possible umbilical hernia repair in the future) Silviano Goss MD [Primary Care Provider] - Diet: Low Fiber Diet Texture: Dental soft (bite-sized) Addtl Attending Provider Instructions: Follow-up with your primary care physician within a week time and likely you will need labs CBC/CMP/magnesium/phosphorus. Continue with low fiber diet for next several days, over 7 to 10 days, you can transition back to your regular consistency diet if ongoing improvement. If worsening abdominal pain, report to emergency immediately. While in the hospital, your A1c was found to be 5.9. This means you have prediabetes. Encourage lifestyle modification including healthy diet and daily exercise regimen. You will need repeat A1c in 3 months. Coordinate with your PCP office for ongoing management and monitoring. Can follow-up with surgery as an outpatient to consider elective umbilical hernia repair in 1 to 2 months time. Take your medications as prescribed. Please make sure that you are able to get your medications today by calling your pharmacy before you leave the hospital so that your treatment continuity is not broken. Pending Studies at Discharge: No Stand-Alone Forms: My [facility] MyPermissions, Smoking Cessation Medications and DC Order Prescriptions: Continued atenolol 50 mg tablet 50 mg PO DAILY losartan 50 mg tablet 50 mg PO QAM Discharge Orders: Discharge Order (Routine); Ordered 04/12/23 Ordered By: Winter Echevarria/Other Patient Handouts: Small Bowel Obstruction, Treating Diarrhea Admission Data Admit Date/Time: 04/10/23 16:18 Attending Provider: Winter Grigsby Admit Provider: Nicolasa Gomes Primary Care Provider: Silviano Goss Other Providers: Baudilio Kirkpatrick; Nicolasa Gomes Other Interventions: Discharge Summary Assessment (RN) Last Done: 04/12/23 11:21
--- NOTE | 2023-04-12 12:39 | Surgery Progress Note ---
Date of Service April 12, 2023 Assessment & Plan (1) SBO (small bowel obstruction): Plan: Clinically resolved. No surgical intervention patient has been started on a low fiber diet per medicine He may be discharged if tolerating diet without return of symptoms Admission and Anticipated Discharge Date Admission Date: April 10, 2023 Subjective Patient was seen this am. Continues with multiple loose stools and passing flatus. He denies N/V o r abdominal pain, tolerated clear liquids yesterday. Report no actual pain but "gurgling" intermittently. Physical Exam Constitutional: healthy appearing; not ill appearing, not in distress and not diaphoretic Respiratory: normal respiratory effort; no respiratory distress, no labored breathing and does not use accessory muscles Cardiovascular: Rate/Rhythm: regular rate; not tachycardic Gastrointestinal (Abdomen): Benign Results & Data Vital Signs (Past 12 Hours) Vital Signs Temp Pulse Pulse Pulse Resp BP Pulse Ox 04/12/23 11:24 36.4 C L 76 18 130/84 99 04/12/23 11:21 36.4 C L 80 82 18 122/76 99 04/12/23 08:00 04/12/23 08:00 36.4 C L 80 18 122/76 99 04/12/23 06:59 71 04/12/23 02:53 36.5 C 82 16 129/74 97 O2 Del Method 04/12/23 11:24 Room Air 04/12/23 11:21 04/12/23 08:00 Room Air 04/12/23 08:00 Room Air 04/12/23 06:59 04/12/23 02:53 Room Air PG Care Time/CCT Total # of Minutes Spent Total Time Spent with Patient: Total time spent is greater than 50% in coordination of care (as documented) at patient's floor/unit and/or counseling patient: Coding Level of Care Code 97739 SUB INP/OBS CARE 03/30MIN Diagnoses SBO (small bowel obstruction) K56.609
== END 2023-04-12 15:10 | disposition home or self-care (01) | DRG 390 ==
LOC: ED 12:51 → EDINP 16:18 → SUATTDRO 16:18 → 2N 20:06